=== PATIENT | male | born 1960 | race Caucasian/White ===

== ENCOUNTER → 2019-10-06 | Outpatient (CLI) | payer OTHER | END | disposition home or self-care (01) | LOC: LABWHC1 12:45 | PROVIDERS: ATTEND Surgery Plastic and Reconstructive Surgery | DX: Z01.810 Encounter for preprocedural cardiovascular examination (principal) | CPT/HCPCS: 36415; 93005 ==

== ENCOUNTER 2019-11-06 07:05 | Day surgery (SDC) | payer OTHER ==
[2019-11-04 15:25] VITALS: BMI 29.1
[2019-11-06 10:53] VITALS: TEMP 97
[2019-11-06 12:51] VITALS: BP 131/73; PULSE 99; RESP 16
== END 2019-11-06 13:55 | disposition home or self-care (01) ==
LOC: OR 07:05
PROVIDERS: ATTEND Surgery Plastic and Reconstructive Surgery
DX: K40.90 Unilateral inguinal hernia, without obstruction or gangrene, not specified as recurrent (principal); K66.0 Peritoneal adhesions (postprocedural) (postinfection); K74.69 Other cirrhosis of liver; K21.9 Gastro-esophageal reflux disease without esophagitis; H40.9 Unspecified glaucoma; Z85.46 Personal history of malignant neoplasm of prostate; Z90.79 Acquired absence of other genital organ(s); Z79.899 Other long term (current) drug therapy; Z87.891 Personal history of nicotine dependence; Z92.3 Personal history of irradiation; Z98.41 Cataract extraction status, right eye; Z98.42 Cataract extraction status, left eye; Z80.42 Family history of malignant neoplasm of prostate
CPT/HCPCS: 64488; 85025; 88302; 49650; C1781; J2250; J1644; J1100 ×2; J0690; J2405; J3010; J1885; J2795; J2704

== ENCOUNTER → 2019-11-27 | Outpatient (CLI) | payer OTHER | END | disposition home or self-care (01) | LOC: LABWHC1 08:21 | PROVIDERS: ATTEND Surgery | DX: C61 Malignant neoplasm of prostate (principal) | CPT/HCPCS: 36415; 84153; 84403 ==

== ENCOUNTER → 2020-05-25 | Outpatient (CLI) | payer OTHER ==
--- NOTE | 2020-05-25 09:06 | XR ---
EXAM TYPE: LUMBAR SPINE X RAY SERIES COMPARISON: NONE HISTORY: Pain TECHNIQUE: 3 views are submitted. FINDINGS: Alignment is anatomic. The pedicles are intact. The transverse processes are intact. Diffuse osteop enia with multilevel hypertrophic and degenerative change. There is a grade 1 anterolisthesis L5 on S 1. Multilevel facet arthropathy. IMPRESSION: 1. Multilevel facet arthropathy with severe degenerative disc disease L5-S1. Suspect a spondylolysis with grade 1 anterolisthesis. Recommend follow-up MRI.
[2020-05-25 09:16] LABS: Basophils % (A) 1 %; Eosinophils # (A) 0.1 k/uL (0-0.7); Eosinophils % (A) 3 %; HCT 43.7 % (39.0-53.0); HGB 13.6 gm/dL (13.0-17.5); Lymphocytes # (A) 1.1 k/uL (1.0-4.8); Lymphocytes % (A) 21 %; MCV 90.3 fL (80.0-100.0); Mean Platelet Volume 7.8; Monocytes # (A) 0.3 k/uL (0-1.0); Monocytes % (A) 6 %; Neutrophils # (A) 3.4 k/uL (1.3-7.7); Neutrophils % (A) 68 %; Platelet Count 208 k/uL (150-450); RBC 4.84 m/uL (4.30-5.90); RDW 13.7 % (11.5-15.5)
[2020-05-25 16:43] LABS: ALT 27 U/L (10-49); AST 22 U/L (14-35); African American GFR (CKD) 111.7 (60.0-200.0); Albumin/Globulin Ratio 2.76 (1.60-3.17); Alkaline Phosphatase 93 U/L (41-126); Calcium 9.3 mg/dL (8.7-10.3); Carbon Dioxide 28.6 mmol/L (21.6-31.8); Chloride 105 mmol/L (96-109); Chol/HDL Ratio 3.48; Cholesterol 195 mg/dL (0-200); Globulin 1.7 g/dL (1.6-3.3); Glucose 98 mg/dL (70-110); LDL Cholesterol,Calculated 127.4 mg/dL (0.0-131.0); Non-African American GFR(CKD) 96.4 (60.0-200.0); Potassium 5.3 mmol/L (3.5-5.5); Sodium 143 mmol/L (135-145); Total Bilirubin 0.6 mg/dL (0.2-1.2); Total Protein 6.4 g/dL (6.2-8.2)
[2020-05-25 17:08] LABS: Prostate Specific Antigen <0.1 ng/mL (0.0-4.5)
== END | disposition home or self-care (01) ==
LOC: LABWHC1 08:13
PROVIDERS: ATTEND Surgery
DX: M51.17 Intervertebral disc disorders with radiculopathy, lumbosacral region (principal); M47.27 Other spondylosis with radiculopathy, lumbosacral region; Z00.00 Encounter for general adult medical examination without abnormal findings; C61 Malignant neoplasm of prostate
CPT/HCPCS: 36415; 72100; 80053; 80061; 84153; 84439; 84443; 85025

== ENCOUNTER → 2020-09-22 | Outpatient (CLI) | payer OTHER ==
--- NOTE | 2020-09-22 18:53 | MR ---
EXAMINATION TYPE: MR lumbar spine wo con DATE OF EXAM: 09/22/2020 COMPARISON: Radiograph 05/25/2020 HISTORY: Lower 60-year-old male Back Pain, Goes into Left Buttock and down back of Left Leg. About 1. 5 years TECHNIQUE: Multiplanar, multisequence images of the lumbar spine were acquired. FINDINGS: There is a transitional lumbosacral segment with a partially lumbarized sacral vertebral body. Bilateral L5 pars defects with grade 2, nearly grade 3 anterolisthesis at L5-S1 with associated advan pramod degenerative disc disease with degenerated, desiccated, and narrowed disc with vacuum phenomenon. Mild degenerative disc disease at additional levels in the lumbar spine and facet arthropathy lower l umbar spine. Conus medullaris is normal. No suspicious bone marrow replacement. At T12-L1, mild disc bulge without canal or foraminal stenosis. At L1-L2, mild diffuse disc bulge impressing on the ventral thecal sac but not causing any significan t spinal canal stenosis. Mild narrowing of the right the neuroforamen. At L2-L3, no spinal canal or foraminal stenosis. At L3-L4, mild facet arthropathy. No significant canal or foraminal stenosis. At L4-L5, ligamentum flavum thickening with facet arthropathy and minimal bulging disc. No significan t canal or foraminal stenosis. At L5-S1, grade 2, nearly grade 3 anterolisthesis with hypertrophic facet arthropathy. There is slitl gabriel narrowing of the bilateral neuroforamen with pain of the bilateral exiting L5 nerve roots. There seems to be some mass effect on to the traversing left S1 nerve root at this level, sagittal image 7 and. No spinal canal stenosis. Ectatic upper abdominal aorta 2.9 cm. IMPRESSION: 1. Transitional sacral segment with a lumbarized S1 vertebral body. There are bilateral L5 pars defec ts with grade 2, nearly grade 3 anterolisthesis of L5-S1 with associated advanced degenerative disc d isease. There is resultant slitlike narrowing of the bilateral neuroforamen at this level likely with impingement of the exiting L5 nerve roots. There also seems to be some mass effect onto the traversi ng left S1 nerve root at this level. 2. Mild degenerative disc disease at additional levels. No large focal disc herniation or spinal milton l or other significant neuroforaminal stenosis.
== END | disposition home or self-care (01) ==
LOC: RADMRIMAIN 12:35
PROVIDERS: ATTEND Family Medicine
DX: M48.061 Spinal stenosis, lumbar region without neurogenic claudication (principal); M51.36 Other intervertebral disc degeneration, lumbar region; M51.37 Other intervertebral disc degeneration, lumbosacral region; M43.17 Spondylolisthesis, lumbosacral region
CPT/HCPCS: 72148

== ENCOUNTER → 2021-01-31 | Outpatient (CLI) | payer OTHER ==
--- NOTE | 2021-01-31 09:58 | XR ---
EXAMINATION TYPE: XR chest 2V DATE OF EXAM: 01/31/2021 COMPARISON: None INDICATION: Presurgical evaluation TECHNIQUE: Frontal and lateral views of the chest are obtained. FINDINGS: The heart size is normal. The pulmonary vasculature is normal. The lungs are clear. IMPRESSION: 1. No acute pulmonary process.
== END | disposition home or self-care (01) ==
LOC: RADXRMAIN 08:19
PROVIDERS: ATTEND Neurological Surgery
DX: Z01.818 Encounter for other preprocedural examination (principal)
CPT/HCPCS: 71046

== ENCOUNTER → 2021-03-02 | Outpatient (CLI) | payer OTHER ==
--- NOTE | 2021-03-02 12:03 | ECHOF ---
Referral Reason:R94.31 abnormal EKG, R06.02 shortness of breath MEASUREMENTS -------- HEIGHT: 182.9 cm WEIGHT: 95.3 kg BP: RVIDd: 3.1 cm (< 3.3) IVSd: 1.0 cm (0.6 - 1.1) LVIDd: 5.0 cm (3.9 - 5.3) LVPWd: 1.4 cm (0.6 - 1.1) IVSs: 1.4 cm LVIDs: 3.5 cm LVPWs: 1.3 cm LAESV Index (A-L): 37.70 ml/m Ao Diam: 3.7 cm (2.0 - 3.7) AV Cusp: 1.3 cm (1.5 - 2.6) LA Diam: 3.1 cm (2.7 - 3.8) MV E Joel: 0.45 m/s MV DecT: 284 ms MV A Joel: 0.60 m/s MV E/A Ratio: 0.75 RAP: 5.00 mmHg RVSP: 16.30 mmHg FINDINGS -------- Sinus rhythm. This was a technically good study. LV size, wall thickness and systolic function are normal, with an EF greater than 55%. The left hal tricular size is normal. The right ventricle is normal in size. LA is moderately dilated 34-39 ml/m2 The right atrial size is normal. The aortic valve is trileaflet, and appears structurally normal. No aortic stenosis or regurgitation. Mild mitral regurgitation is present. Mild tricuspid regurgitation present. Right ventricular systolic pressure is normal at < 35 mmHg. There is no pulmonic regurgitation present. There is no pericardial effusion. CONCLUSIONS -------- 1. LV size, wall thickness and systolic function are normal, with an EF greater than 55%. 2. The left ventricular size is normal. 3. The right ventricle is normal in size. 4. LA is moderately dilated 34-39 ml/m2 5. The right atrial size is normal. 6. The aortic valve is trileaflet, and appears structurally normal. No aortic stenosis or regurgitati on. 7. Mild mitral regurgitation is present. 8. Mild tricuspid regurgitation present. 9. There is no pericardial effusion. MANAGER [employer]: Teresa Jain RDCS
--- NOTE | 2021-03-02 13:02 | EST ---
EXERCISE STRESS STRESS ECHO REPORT: Baseline EKG revealed normal sinus rhythm with isolated PVC. No acute changes. Patient walked for 8 minutes, 9 seconds. Achieved a maximal heart rate of 142 beats per minute, which is more than 85% of predicted maximal. Developed fatigue and shortness of breath but did not have any angina or arrhythmia. EKG did not reveal any ST-segment changes to indicate ischemia. The isolated PVC seen at rest disappeared with exercise. By EKG criteria, this is a negative stress test with fair exercise capacity. Baseline echo images revealed normal wall motion wall thickening of all segments. At peak exercise, there was good augmentation of left and wall motion wall thickening of all segments suggesting that there is no evidence of stress-induced ischemia on this study. PLAN: 1. By EKG criteria, this is a negative stress test with fair exercise capacity. 2. Normal stress echocardiogram without evidence of ischemia. MMHAIML / JAMESONN: [id number] /
== END | disposition home or self-care (01) ==
LOC: RADECHMAIN 08:20
PROVIDERS: ATTEND Internal Medicine
DX: I08.1 Rheumatic disorders of both mitral and tricuspid valves (principal)
CPT/HCPCS: 93306; C8930; 93351

== ENCOUNTER → 2021-03-29 | Outpatient (CLI) | payer OTHER ==
[2021-03-29 23:03] LABS: Prostate Specific Antigen <0.1 ng/mL (0.0-4.5)
== END | disposition home or self-care (01) ==
LOC: LABWHC1 08:45
PROVIDERS: ATTEND Radiology Radiation Oncology
DX: C61 Malignant neoplasm of prostate (principal)
CPT/HCPCS: 36415; 84153; 84403

== ENCOUNTER → 2021-03-29 | Outpatient (CLI) | payer OTHER ==
--- NOTE | 2021-03-29 08:46 | XR ---
EXAMINATION TYPE: XR chest 2V DATE OF EXAM: 03/29/2021 COMPARISON: 01/31/2021 INDICATION: Spondylolisthesis lumbar spine, presurgical evaluation TECHNIQUE: Frontal and lateral views of the chest are obtained. FINDINGS: The heart size is normal. The pulmonary vasculature is normal. The lungs are clear. IMPRESSION: 1. No acute pulmonary process.
== END | disposition home or self-care (01) ==
LOC: RADXRMAIN 08:17
PROVIDERS: ATTEND Neurological Surgery
DX: Z01.818 Encounter for other preprocedural examination (principal)
CPT/HCPCS: 71046

== ENCOUNTER → 2021-10-02 | Outpatient (CLI) | payer OTHER ==
[2021-10-02 14:58] LABS: Prostate Specific Antigen <0.01 ng/mL (0.00-4.50)
== END | disposition home or self-care (01) ==
LOC: LABWHC1 08:10
PROVIDERS: ATTEND Radiology Radiation Oncology
DX: C61 Malignant neoplasm of prostate (principal)
CPT/HCPCS: 36415; 84153; 84403

== ENCOUNTER → 2022-06-20 | Outpatient (CLI) | payer OTHER ==
[2022-06-20 16:00] LABS: Basophils # (A) 0.03 X 10*3/uL (0.00-0.10); Basophils % (A) 0.6 %; Eosinophils # (A) 0.11 X 10*3/uL (0.04-0.35); Eosinophils % (A) 2.4 %; HCT 44.1 % (39.6-50.0); HGB 14.4 g/dL (13.0-17.0); Immature Grans, Automated 0.2 %; Lymphocytes # (A) 1.02 X 10*3/uL (0.90-5.00); Lymphocytes % (A) 21.8 %; MCH 29.8 pg (27.0-32.0); MCHC 32.7 g/dL (32.0-37.0); MCV 91.3 fL (80.0-97.0); Monocytes # (A) 0.46 X 10*3/uL (0.20-1.00); Monocytes % (A) 9.9 %; NRBC Per 100 WBC 0 /100 WBCS (0.0-0.0); Neutrophils # (A) 3.04 X 10*3/uL (1.80-7.70); Neutrophils % (A) 65.1 %; Platelet Count 217 X 10*3/uL (140-440); RBC 4.83 X 10*6/uL (4.40-5.60); RDW 13.4 % (11.5-14.5); WBC 4.67 X 10*3/uL (4.50-10.00)
[2022-06-20 17:10] LABS: Chol/HDL Ratio 3.71 Ratio
== END | disposition home or self-care (01) ==
LOC: LABWHC1 08:57
PROVIDERS: ATTEND Family Medicine
DX: Z00.00 Encounter for general adult medical examination without abnormal findings (principal)
CPT/HCPCS: 36415; 80061; 84439; 84443; 85025

== ENCOUNTER 2022-12-03 11:53 | Emergency (ER) | payer OTHER ==
[2022-12-03 12:40] VITALS: BP 145/69; PULSE 76; RESP 18; TEMP 97.7
[2022-12-03] MEDS ORDERED: LIDOCAINE 1% INJ 10MG/ML (30 ML VIAL-PF) SQ ONE (12:51)
[2022-12-03] MEDS ORDERED: DIPH,PERTUS(ACELL)TETVAC-LF 0.5 ML VIAL IM ONE (12:51)
--- NOTE | 2022-12-03 13:37 | ED ---
Wound/Laceration HPI - General Chief Complaint: Wound/Laceration Stated Complaint: cut L finger Time Seen by Provider: 12/03/22 12:44 Source: patient, RN notes reviewed Mode of arrival: ambulatory Limitations: no limitations - History of Present Illness Initial Comments: This is a 62-year-old male who presents to the emergency department for a laceration to the left index finger. He cut this on part of his lawnmower this morning. States that this was a dirty wound. Pain is controlled. Unsure when his last tetanus vaccine was. Denies any fevers, chills, sore throat, cough, dyspnea, chest pain, palpitations, abdominal pain, nausea, vomiting, diarrhea, back pain, or headaches. Location: other (left index finger) Place: home Patient Tetanus UTD: No Context: accidental - Related Data Home Medications Medication Instructions Recorded Confirmed Multivitamin [Men's Multi-Vitamin] 1 tab PO DAILY 03/17/15 11/06/19 Latanoprost/Pf [Latanoprost 0.005% 1 drop BOTH EYES HS 11/04/19 11/06/19 Eye Drop] Previous Rx's Medication Instructions Recorded Acetaminophen Tab [Tylenol Tab] 1,000 mg PO Q6HR PRN #30 tablet 11/06/19 Ibuprofen [Motrin] 600 mg PO Q8HR PRN #30 tab 11/06/19 Tamsulosin [Flomax] 0.4 mg PO DAILY #7 cap 11/06/19 Cephalexin [Keflex] 500 mg PO Q8HR 3 Days #9 cap 12/03/22 Allergies Allergy/AdvReac Type Severity Reaction Status Date / Time No Known Allergies Allergy Verified 11/06/19 07:20 Review of Systems ROS Statement: Those systems with pertinent positive or pertinent negative responses have been documented in the HPI. ROS Other: All systems not noted in ROS Statement are negative. Past Medical History Past Medical History: Cancer, Eye Disorder, GERD/Reflux, Prostate Disorder Additional Past Medical History / Comment(s): prostate cancer, glaucoma, radiation finished 03/2019 for return of prostate cancer History of Any Multi-Drug Resistant Organisms: None Reported Past Surgical History: Hernia Repair, Prostate Surgery Additional Past Surgical History / Comment(s): prostatectomy with lymph node removal , left inguinal hernia, azam cataracts, Past Anesthesia/Blood Transfusion Reactions: No Reported Reaction Past Psychological History: No Psychological Hx Reported Smoking Status: Former smoker Past Alcohol Use History: None Reported Past Drug Use History: Marijuana - Past Family History Father Family Medical History: Cancer Additional Family Medical History / Comment(s): prostate cancer General Exam Limitations: no limitations General appearance: alert, in no apparent distress Head exam: Present: atraumatic, normocephalic, normal inspection Respiratory exam: Present: normal lung sounds bilaterally. Absent: respiratory distress, wheezes, rales, rhonchi, stridor Cardiovascular Exam: Present: regular rate, normal rhythm, normal heart sounds. Absent: systolic murmur, diastolic murmur, rubs, gallop, clicks Neurological exam: Present: alert, oriented X3, CN II-XII intact Psychiatric exam: Present: normal affect, normal mood Skin exam: Present: other (5 centimeter laceration to the dorsal aspect of the left index finger.) Course Vital Signs 12/03/22 12/03/22 12:38 13:44 Temperature 97.7 F Pulse Rate 76 Respiratory 18 18 Rate Blood Pressure 145/69 O2 Sat by Pulse 98 Oximetry Procedures - Laceration Laceration #1 Consent Obtained: verbal consent Indication: laceration Site: other (left index finger) Description: linear Depth: simple, single layer Anesthetic Used: lidocaine 1% Anesthesia Technique: local infiltration Amount (mls): 3 Pre-repair: wound explored, irrigated extensively Type of Sutures: nylon Size of Sutures: 5-0 Number of Sutures: 6 Medical Decision Making - Medical Decision Making This is a 62-year-old male who presents to the emergency department for a laceration. Was pt. sent in by a medical professional or institution? @ -No Did you speak to anyone other than the patient for history? @ -No Did you review nursing and triage notes? @ -Yes, and I agree, it is accurate with regards to the patient's symptoms. Were old charts reviewed? @ -No Differential Diagnosis? @ -Not applicable What testing was considered but not performed? (CT, X-rays, U/S, labs)? Why? @ -None What meds were considered but not given? Why? @ -None Did you discuss the management of the patient with other professionals? @ -No Did you reconcile home meds? @ -No Was smoking cessation discussed for >3mins.? @ -No Was critical care preformed (if so, how long)? @ -No Were there social determinants of health that impacted care today? How? (Homelessness, low income, unemployed, alcoholism, drug addiction, trans portation, low edu. Level, literacy, decrease access to med. care, fci, rehab)? @ -No Was there de-escalation of care discussed even if they declined? (Discuss DNR or withdrawal of care, Hospice)? @ -No What co-morbidities impacted this encounter? (DM, HTN, Smoking, COPD, CAD, Cancer, CVA, Hep., AIDS, mental health diagnosis, sleep apnea, morbid obesity)? @ -None Was patient admitted / discharged? @ -Discharged. The wound was thoroughly irrigated. Tetanus status was updated. Laceration was repaired with sutures. He is instructed to return in 5-7 days for suture removal and to alternate with ibuprofen and Tylenol as needed for pain relief. Given that this was a fairly dirty wound, patient treated prophylactically with a 3 day course of Keflex. This was prescribed with dosing instructions reviewed. Undiagnosed new problem with uncertain prognosis? @ -None Drug Therapy requiring intensive monitoring for toxicity (Heparin, Nitro, Insulin, Cardizem)? @ -None Were any procedures done? @ -Yes, laceration repair with sutures. Diagnosis/symptom? @ -Laceration Acute, or Chronic, or Acute on Chronic? @ -Acute Uncomplicated (without systemic symptoms) or Complicated (systemic symptoms)? @ -Uncomplicated Side effects of treatment? @ -None Exacerbation, Progression, or Severe Exacerbation] @ -Not applicable Poses a threat to life or bodily function? @ -No Return precautions reviewed in depth, the patient is instructed to return to the emergency department with any new, worsening, or concerning symptoms. Patient verbalized understanding. This case was discussed in detail with the attending ED physician, Dr. Li. Presentation, findings, and treatment plan discussed in detail as well. Disposition Clinical Impression: Laceration Disposition: HOME SELF-CARE Instructions (If sedation given, give patient instructions): Care For Your Stitches (ED) Additional Instructions: Return to the emergency department with any new, worsening, or concerning symptoms, and in 5-7 days for removal of the stitches. Take the antibiotic as prescribed for 3 days. Alternate with ibuprofen and Tylenol as needed for pain relief. Prescriptions: Cephalexin [Keflex] 500 mg PO Q8HR 3 Days #9 cap Is patient prescribed a controlled substance at d/c from ED?: No Referrals: Rocky Argueta MD [Primary Care Provider] - 1-2 days
== END 2022-12-03 13:45 | disposition home or self-care (01) ==
LOC: EC 11:53
DX: S61.211A Laceration without foreign body of left index finger without damage to nail, initial encounter (principal); Z87.891 Personal history of nicotine dependence; F12.90 Cannabis use, unspecified, uncomplicated; Z23 Encounter for immunization; W28.XXXA Contact with powered lawn mower, initial encounter
CPT/HCPCS: 90715; 99282; 90471; 12002; J2001

== ENCOUNTER 2022-12-12 08:36 | Day surgery (SDC) | payer OTHER ==
[~2022-12-12 08:36] MED LIST: LACTATED RINGERS 1,000 ML IV SCH; LIDOCAINE 1% (10MG/ML) FOR IV START INTRADERMA PRN
--- NOTE | 2022-12-12 09:02 | P.GSHP ---
History of Present Illness H&P Date: 12/12/22 CHIEF COMPLAINT: Colon screen HISTORY OF PRESENT ILLNESS: The patient is a 62-year-old male who presents for colon screen. Lower endoscopy was offered for further evaluation and management. PAST MEDICAL HISTORY: Please see list. PAST SURGICAL HISTORY: Please see list. MEDICATIONS: Please see list. ALLERGIES: Please see list. SOCIAL HISTORY: No illicit drug use FAMILY HISTORY: No reports of Crohn disease or ulcerative colitis. REVIEW OF ORGAN SYSTEMS: CONSTITUTIONAL: No reports of fevers or chills. PHYSICAL EXAM: VITAL SIGNS: Stable GENERAL: Well-developed pleasant in no acute distress. HEENT: No scleral icterus. Extraocular movements grossly intact. Moist buccal mucosa. NECK: Supple without lymphadenopathy. CHEST: Unlabored respirations. Equal bilateral excursions. CARDIOVASCULAR: Regular rate and rhythm. Distal 2+ pulses. ABDOMEN: Soft, nontender, nondistended. MUSCULOSKELETAL: No clubbing, cyanosis, or edema. ASSESSMENT: 1. Colon screen. PLAN: 1. Recommend proceeding with a lower endoscopy Past Medical History Past Medical History: Cancer, Eye Disorder, GERD/Reflux, Prostate Disorder Additional Past Medical History / Comment(s): prostate cancer, glaucoma, radiation finished 03/2019 for return of prostate cancer, recent CT. removing pre cancerous lesions on arms. History of Any Multi-Drug Resistant Organisms: None Reported Past Surgical History: Back Surgery, Hernia Repair, Prostate Surgery Additional Past Surgical History / Comment(s): prostatectomy, penal implant. , left inguinal hernia, azam cataracts, hardware in back. Past Anesthesia/Blood Transfusion Reactions: No Reported Reaction Smoking Status: Former smoker - Past Family History Father Family Medical History: Cancer Additional Family Medical History / Comment(s): prostate cancer Medications and Allergies Home Medications Medication Instructions Recorded Confirmed Type Multivitamin [Men's Multi-Vitamin] 1 tab PO DAILY 03/17/15 12/07/22 History Latanoprost/Pf [Latanoprost 0.005% 1 drop BOTH EYES HS 11/04/19 12/07/22 History Eye Drop] Dextroamphetamine/Amphetamine 20 mg PO BID 12/07/22 12/07/22 History [Dextroamp-Amphetamin 20 mg Tab] Omeprazole 20 mg PO DAILY 12/07/22 12/07/22 History Allergies Allergy/AdvReac Type Severity Reaction Status Date / Time No Known Allergies Allergy Verified 12/07/22 14:12
[2022-12-12 09:16] VITALS: RESP 16; TEMP 97.8
[2022-12-12] MEDS ORDERED: PROPOFOL 10 MG/ML 20 ML VIAL IV ONE (09:40)
[2022-12-12 10:19] VITALS: BP 120/77; PULSE 69
--- NOTE | 2022-12-12 11:02 | P.PCN ---
Date of Procedure: 12/12/22 Description of Procedure: PREOPERATIVE DIAGNOSIS: Colonoscopy screening. POSTOPERATIVE DIAGNOSIS: Colonoscopy screening. Sigmoid diverticulosis OPERATION: Colonoscopy to the cecum, ileocecal valve and appendiceal orifice. SURGEON: Kendal Grullon MD. ANESTHESIA: MAC. INDICATIONS: The patient is a 62-year-old female who presents for colonoscopy screening. Last colonoscopy 10 years ago. Benefits and risks were described and informed consent was obtained. DESCRIPTION OF PROCEDURE: The patient had undergone Sutab prep. The patient had been brought into the operating room and laid in the left lateral decubitus position. After adequate intravenous sedation, the rectum was examined with 2% lidocaine jelly. No external hemorrhoids were encountered. The rectal tone was within normal limits. No lesions were palpated in the rectal vault. An Olympus colonoscope was advanced until the cecum, ileocecal valve and appendiceal orifice were clearly viewed. The prep was excellent. Scattered diverticulosis was encountered. No colonic polyps were found. No evidence of focal colitis was found. Retroflexion of the scope demonstrated grade 1 internal hemorrhoids without active bleeding or inflammation. The colon was desufflated. The patient had tolerated the procedure well. Withdrawal time was over 6 minutes. FINDINGS: Aronchick preparation quality scale 1 (1-5) Internal hemorrhoids, grade 1 No external prolapsed hemorrhoids. No arteriovenous malformations. No adenomatous polyps. No focal colitis. Sigmoid diverticulosis RECOMMENDATIONS: Lower endoscopy 10 years, 2032 Plan - Discharge Summary Discharge Rx Participant: No New Discharge Prescriptions: Continue Multivitamin [Men's Multi-Vitamin] 1 tab PO DAILY Latanoprost/Pf [Latanoprost 0.005% Eye Drop] 1 drop BOTH EYES HS Omeprazole 20 mg PO DAILY Dextroamphetamine/Amphetamine [Dextroamp-Amphetamin 20 mg Tab] 20 mg PO BID Discharge Medication List Multivitamin [Men's Multi-Vitamin] 1 tab PO DAILY 03/17/15 [History] Latanoprost/Pf [Latanoprost 0.005% Eye Drop] 1 drop BOTH EYES HS 11/04/19 [History] Dextroamphetamine/Amphetamine [Dextroamp-Amphetamin 20 mg Tab] 20 mg PO BID 12/07/22 [History] Omeprazole 20 mg PO DAILY 12/07/22 [History] Follow up Appointment(s)/Referral(s): Kendal Grullon MD [STAFF PHYSICIAN] - As Needed Patient Instructions/Handouts: *Surgery [facility] - (Anesthesia) Endoscopy Discharge Instructions, Diverticulosis (GEN), Diverticulosis Diet (GEN), Colonoscopy (DC) Activity/Diet/Wound Care/Special Instructions: Repeat colonoscopy 10 years, 2032 Discharge Disposition: HOME SELF-CARE
== END 2022-12-12 10:42 | disposition home or self-care (01) ==
LOC: ORWHC2ENDO 08:36
PROVIDERS: ATTEND Surgery Plastic and Reconstructive Surgery
DX: Z12.11 Encounter for screening for malignant neoplasm of colon (principal); K57.30 Diverticulosis of large intestine without perforation or abscess without bleeding; K21.9 Gastro-esophageal reflux disease without esophagitis; Z85.46 Personal history of malignant neoplasm of prostate; Z90.79 Acquired absence of other genital organ(s); Z87.891 Personal history of nicotine dependence; Z80.42 Family history of malignant neoplasm of prostate; Z79.899 Other long term (current) drug therapy
CPT/HCPCS: 45378; J2704

== ENCOUNTER → 2024-01-22 | Outpatient (CLI) | payer OTHER ==
--- NOTE | 2024-01-24 17:03 | XR ---
EXAMINATION TYPE: XR chest 2V DATE OF EXAM: 01/22/2024 4:51 PM CLINICAL INDICATION:Male, 63 years old with history of HEMOPTYSIS; [facility] COMPARISON: 03/29/2021. TECHNIQUE: XR chest 2V Frontal and lateral views of the chest. FINDINGS: Lungs/Pleura: There is flattening of the diaphragm with increased lucency of the lungs. No evidence o f pneumothorax, pleural effusion or focal consolidation. Pulmonary vascularity: Unremarkable. Heart/mediastinum: Cardiomediastinal silhouette is unremarkable. Musculoskeletal: No acute osseous pathology. IMPRESSION: 1. No acute cardiopulmonary disease process. 2. COPD changes.
== END | disposition home or self-care (01) ==
LOC: RADXRMAIN 16:06
PROVIDERS: ATTEND Family Medicine
DX: J44.9 Chronic obstructive pulmonary disease, unspecified (principal); R04.2 Hemoptysis
CPT/HCPCS: 71046

== ENCOUNTER → 2024-01-22 | Outpatient (CLI) | payer OTHER ==
[2024-01-22 18:33] LABS: Basophils # (A) 0.04 X 10*3/uL (0.00-0.10); Basophils % (A) 0.5 %; Eosinophils # (A) 0.21 X 10*3/uL (0.04-0.35); Eosinophils % (A) 2.7 %; HCT 49.6 % (39.6-50.0); HGB 15.6 g/dL (13.0-17.0); Lymphocytes # (A) 1.51 X 10*3/uL (0.90-5.00); Lymphocytes % (A) 19.5 %; MCH 28.3 pg (27.0-32.0); MCHC 31.5 g/dL (32.0-37.0); MCV 89.9 FL (80.0-97.0); Mean Platelet Volume 10.6 FL (9.5-12.2); Monocytes # (A) 0.59 X 10*3/uL (0.20-1.00); Monocytes % (A) 7.6 %; NRBC Per 100 WBC 0 X 10*3/uL (0.00-0.01); Neutrophils # (A) 5.37 X 10*3/uL (1.80-7.70); Neutrophils % (A) 69.3 %; Platelet Count 264 X 10*3/uL (140-440); RBC 5.52 X 10*6/uL (4.40-5.60); RDW 13.9 % (11.5-14.5); WBC 7.75 X 10*3/uL (4.50-10.00)
[2024-01-22 21:53] LABS: ALT 23 U/L (10-49); AST 23 U/L (14-35); Albumin 4.9 g/dL (3.8-4.9); Albumin/Globulin Ratio 1.63 Ratio (1.60-3.17); Alkaline Phosphatase 110 U/L (41-126); Blood Urea Nitrogen 26.9 mg/dL (9.0-27.0); Calcium 10.2 mg/dL (8.7-10.3); Carbon Dioxide 26.2 mmol/L (21.6-31.8); Chloride 102 mmol/L (96-109); Glucose 125 mg/dL (70-110); Potassium 4.8 mmol/L (3.5-5.5); Sodium 142 mmol/L (135-145); Total Bilirubin 0.3 mg/dL (0.3-1.2); Total Protein 7.9 g/dL (6.2-8.2)
== END | disposition home or self-care (01) ==
LOC: LABWHC1 15:26
PROVIDERS: ATTEND Family Medicine
DX: R04.2 Hemoptysis (principal)
CPT/HCPCS: 36415; 80053; 82728; 85025; 86480

== ENCOUNTER 2024-05-12 15:12 | Inpatient (IN) | payer MEDICARE, OTHER ==
--- NOTE | 2024-05-12 15:57 | ED ---
General Adult HPI - General Chief complaint: Chest Pain Stated complaint: Chest Pain Time Seen by Provider: 05/12/24 15:31 Source: patient, RN notes reviewed Mode of arrival: ambulatory Limitations: no limitations - History of Present Illness Initial comments: Patient is a 64-year-old male present to the emergency department with concerns with chest discomfort. Onset of symptoms was several months ago however worse over the past few days. Discomfort feels like an ache. There is some associated dyspnea. Symptoms are exertional. No nausea. No diaphoresis. Discomfort is currently 04/04 - Related Data Home Medications Medication Instructions Recorded Confirmed Multivitamin [Men's Multi-Vitamin] 1 tab PO DAILY 03/17/15 05/12/24 Latanoprost/Pf [Latanoprost 0.005% 1 drop BOTH EYES HS 11/04/19 05/12/24 Eye Drop] Dextroamphetamine/Amphetamine 20 mg PO BID 12/07/22 05/12/24 [Dextroamphetamine/Amphetamine 20 mg Tab] Omeprazole 20 mg PO DAILY 12/07/22 05/12/24 Albuterol Sulfate [Albuterol 1 - 2 puff INHALATION RT-Q6H PRN 05/12/24 05/12/24 Sulfate Hfa] Fluticasone/Umeclidin/Vilanter 1 puff INHALATION RT-DAILY 05/12/24 05/12/24 [Trelegy Ellipta 100-62.5-25] Hydrocodone/Acetaminophen 5-300mg 1 tab PO BID 05/12/24 05/12/24 Allergies Allergy/AdvReac Type Severity Reaction Status Date / Time No Known Allergies Allergy Verified 05/12/24 16:12 Review of Systems ROS Statement: Those systems with pertinent positive or pertinent negative responses have been documented in the HPI. ROS Other: All systems not noted in ROS Statement are negative. Constitutional: Denies: fever Eyes: Denies: eye pain ENT: Denies: ear pain Respiratory: Reports: as per HPI Cardiovascular: Reports: as per HPI, chest pain Endocrine: Denies: fatigue Gastrointestinal: Denies: abdominal pain Musculoskeletal: Denies: back pain Past Medical History Past Medical History: Cancer, Eye Disorder, GERD/Reflux, Prostate Disorder Additional Past Medical History / Comment(s): prostate cancer, glaucoma, radiation finished 03/2019 for return of prostate cancer History of Any Multi-Drug Resistant Organisms: None Reported Past Surgical History: Hernia Repair, Prostate Surgery Additional Past Surgical History / Comment(s): prostatectomy with lymph node removal , left inguinal hernia, azam cataracts, Past Anesthesia/Blood Transfusion Reactions: No Reported Reaction Past Psychological History: No Psychological Hx Reported Smoking Status: Former smoker Past Alcohol Use History: None Reported Past Drug Use History: None Reported - Past Family History Father Family Medical History: Cancer Additional Family Medical History / Comment(s): prostate cancer General Exam Limitations: no limitations General appearance: alert, in no apparent distress Head exam: Present: normocephalic Eye exam: Present: normal appearance Neck exam: Present: normal inspection Respiratory exam: Present: normal lung sounds bilaterally Cardiovascular Exam: Present: tachycardia, normal heart sounds Expanded Peripheral pulses: 2+: Radial (R), Radial (L), Posterior Tibialis (R), Posterior Tibialis (L) GI/Abdominal exam: Present: soft. Absent: distended, tenderness Extremities exam: Present: normal inspection. Absent: pedal edema, calf tenderness Neurological exam: Present: alert Psychiatric exam: Present: normal affect, normal mood Skin exam: Present: normal color Course Vital Signs 05/12/24 05/12/24 05/12/24 15:17 15:29 17:30 Temperature 97.5 F L Pulse Rate 116 H 106 H Pulse Rate [ 114 H Dye Beck Reel Operator ] Respiratory 18 18 Rate Blood Pressure 129/83 111/84 O2 Sat by Pulse 99 Oximetry 05/12/24 19:22 Temperature Pulse Rate 107 H Pulse Rate [ Dye Beck Reel Operator ] Respiratory 18 Rate Blood Pressure 114/86 O2 Sat by Pulse 93 L Oximetry EKG Findings - EKG Results: EKG: interpreted by ERMD, sinus rhythm, normal axis, normal QRS, normal ST/T EKG shows: tachycardia Medical Decision Making - Medical Decision Making Was pt. sent in by a medical professional or institution (, PA, RAILROAD WHEELS AND AXLES INSPECTOR, urgent care, hospital, or skilled nursing...) When possible be specific @ -No Did you speak to anyone other than the patient for history (EMS, parent, family, police, friend...)? What history was obtained from this source @ -No Did you review nursing and triage notes (agree or disagree)? Why? @ -I reviewed and agree with nursing and triage notes Were old charts reviewed (outside hosp., previous admission, EMS record, old EKG, old radiological studies, urgent care reports/EKG's, skilled nursing records)? Report findings @ -No old charts were reviewed Differential Diagnosis (chest pain, altered mental status, abdominal pain women, abdominal pain men, vaginal bleeding, weakness, fever, dyspnea, syncope, headache, dizziness, GI bleed, back pain, seizure, CVA, palpatations, mental health, musculoskeletal)? @ -Differential Chest Pain: Stable Angina, Unstable Angina, STEMI, NSTEMI Aortic Dissection, Pneumothorax, Musculoskeletal, Esophageal Spasm GERD, Cholecystitis, Pancreatitis, Zoster, this is not meant to be an all-inclusive list. EKG interpreted by me (3pts min.). @ -As above X-rays interpreted by me (1pt min.). @ -Chest x-ray shows large left opacity CT interpreted by me (1pt min.). @ -None done U/S interpreted by me (1pt. min.). @ -None done What testing was considered but not performed or refused? (CT, X-rays, U/S, labs)? Why? @ -CT scan of the chest will be ordered What meds were considered but not given or refused? Why? @ -None Did you discuss the management of the patient with other professionals (professionals i.e. , PA, RAILROAD WHEELS AND AXLES INSPECTOR, lab, RT, psych nurse, executive secretary social welfare, cerner analyst, teacher, special forces warrant officer, vocational case manager)? Give summary @ -[facility] [place] practitioner Lora Wylie who will admit covering Dr. Argueta Was smoking cessation discussed for >3mins.? @ -No Was critical care preformed (if so, how long)? @ -No Were there social determinants of health that impacted care today? How? (Homelessness, low income, unemployed, alcoholism, drug addiction, transportation, low edu. Level, literacy, decrease access to med. care, longterm, rehab)? @ -No Was there de-escalation of care discussed even if they declined (Discuss DNR or withdrawal of care, Hospice)? DNR status @ -No What co-morbidities impacted this encounter? (DM, HTN, Smoking, COPD, CAD, Cancer, CVA, ARF, Chemo, Hep., AIDS, mental health diagnosis, sleep apnea, morbid obesity)? @ -None Was patient admitted / discharged? Hospital course, mention meds given and route, prescriptions, significant lab abnormalities, going to OR and other pertinent info. @ -Patient presents with chest discomfort and dyspnea. Chest x-ray concerning for opacity. Patient will be admitted with CT scan ordered. Consults will be placed. Admission orders written. Undiagnosed new problem with uncertain prognosis? @ -No Drug Therapy requiring intensive monitoring for toxicity (Heparin, Nitro, Insulin, Cardizem)? @ -No Were any procedures done? @ -No Diagnosis/symptom? @ -Chest pain, dyspnea Acute, or Chronic, or Acute on Chronic? @ -Acute, acute Uncomplicated (without systemic symptoms) or Complicated (systemic symptoms)? @ -Default Side effects of treatment? @ -No Exacerbation, Progression, or Severe Exacerbation? @ -No Poses a threat to life or bodily function? How? (Chest pain, [place], [place], pneumonia, PE, COPD, DKA, ARF, appy, cholecystitis, CVA, Diverticulitis, Homicidal, Suicidal, threat to staff... and all critical care pts) @ -Cardiac and pulmonary function - Lab Data Result diagrams: 05/12/24 16:26 05/12/24 16:26 Lab Results 05/12/24 05/12/24 05/12/24 Range/Units 16:26 16:26 16:26 WBC 8.9 (3.8-10.6) k/uL RBC 5.39 (4.30-5.90) m/uL Hgb 15.4 (13.0-17.5) gm/dL Hct 48.6 (39.0-53.0) % MCV 90.1 (80.0-100.0) fL MCH 28.5 (25.0-35.0) pg MCHC 31.6 (31.0-37.0) g/dL RDW 13.7 (11.5-15.5) % Plt Count 265 (150-450) k/uL MPV 7.6 Neutrophils % 78 % Lymphocytes % 13 % Monocytes % 5 % Eosinophils % 2 % Basophils % 0 % Neutrophils # 7.0 (1.3-7.7) k/uL Lymphocytes # 1.2 (1.0-4.8) k/uL Monocytes # 0.4 (0-1.0) k/uL Eosinophils # 0.2 (0-0.7) k/uL Basophils # 0.0 (0-0.2) k/uL PT 10.3 (10.0-12.5) sec INR 0.9 (<1.2) APTT 22.8 (22.0-30.0) sec D-Dimer 0.33 (<0.60) mg/L FEU Sodium 141 (137-145) mmol/L Potassium 4.4 (3.5-5.1) mmol/L Chloride 101 (98-107) mmol/L Carbon Dioxide 31 H (22-30) mmol/L Anion Gap 9 mmol/L BUN 19 (9-20) mg/dL Creatinine 0.88 (0.66-1.25) mg/dL Est GFR (CKD-EPI)AfAm >90 (>60 ml/min/1.73 sqM) Est GFR (CKD-EPI)NonAf >90 (>60 ml/min/1.73 sqM) Glucose 108 H (74-99) mg/dL Calcium 9.4 (8.4-10.2) mg/dL Magnesium 1.9 (1.6-2.3) mg/dL Total Bilirubin 0.7 (0.2-1.3) mg/dL AST 27 (17-59) U/L ALT 21 (4-49) U/L Alkaline Phosphatase 79 (38-126) U/L Troponin I (0.000-0.034) ng/mL NT-Pro-B Natriuret Pep 62 pg/mL Total Protein 7.2 (6.3-8.2) g/dL Albumin 4.3 (3.5-5.0) g/dL 05/12/24 Range/Units 16:26 WBC (3.8-10.6) k/uL RBC (4.30-5.90) m/uL Hgb (13.0-17.5) gm/dL Hct (39.0-53.0) % MCV (80.0-100.0) fL MCH (25.0-35.0) pg MCHC (31.0-37.0) g/dL RDW (11.5-15.5) % Plt Count (150-450) k/uL MPV Neutrophils % % Lymphocytes % % Monocytes % % Eosinophils % % Basophils % % Neutrophils # (1.3-7.7) k/uL Lymphocytes # (1.0-4.8) k/uL Monocytes # (0-1.0) k/uL Eosinophils # (0-0.7) k/uL Basophils # (0-0.2) k/uL PT (10.0-12.5) sec INR (<1.2) APTT (22.0-30.0) sec D-Dimer (<0.60) mg/L FEU Sodium (137-145) mmol/L Potassium (3.5-5.1) mmol/L Chloride (98-107) mmol/L Carbon Dioxide (22-30) mmol/L Anion Gap mmol/L BUN (9-20) mg/dL Creatinine (0.66-1.25) mg/dL Est GFR (CKD-EPI)AfAm (>60 ml/min/1.73 sqM) Est GFR (CKD-EPI)NonAf (>60 ml/min/1.73 sqM) Glucose (74-99) mg/dL Calcium (8.4-10.2) mg/dL Magnesium (1.6-2.3) mg/dL Total Bilirubin (0.2-1.3) mg/dL AST (17-59) U/L ALT (4-49) U/L Alkaline Phosphatase (38-126) U/L Troponin I <0.012 (0.000-0.034) ng/mL NT-Pro-B Natriuret Pep pg/mL Total Protein (6.3-8.2) g/dL Albumin (3.5-5.0) g/dL Disposition Clinical Impression: Chest pain, Dyspnea Disposition: ADMITTED IP TO THIS HOSP Is patient prescribed a controlled substance at d/c from ED?: No Time of Disposition: 19:53
[2024-05-12] MEDS: ASPIRIN 81 MG PO STA (16:35)
[2024-05-12] MEDS: NITROGLYCERIN SL TABS 0.4 MG TAB SUBLINGUAL STA ×3 (16:36→16:52)
[2024-05-12 16:44] LABS: Basophils % (A) 0 %; Eosinophils # (A) 0.2 k/uL (0-0.7); Eosinophils % (A) 2 %; HCT 48.6 % (39.0-53.0); HGB 15.4 gm/dL (13.0-17.5); Lymphocytes # (A) 1.2 k/uL (1.0-4.8); Lymphocytes % (A) 13 %; MCH 28.5 pg (25.0-35.0); MCHC 31.6 g/dL (31.0-37.0); MCV 90.1 fL (80.0-100.0); Mean Platelet Volume 7.6; Monocytes # (A) 0.4 k/uL (0-1.0); Monocytes % (A) 5 %; Neutrophils % (A) 78 %; Platelet Count 265 k/uL (150-450); RBC 5.39 m/uL (4.30-5.90); RDW 13.7 % (11.5-15.5); WBC 8.9 k/uL (3.8-10.6)
[2024-05-12 16:58] LABS: INR 0.9 (<1.2)
[2024-05-12 16:59] LABS: Partial Thromboplastin Time 22.8 sec (22.0-30.0); Prothrombin Time 10.3 sec (10.0-12.5)
[2024-05-12 17:00] LABS: ALT 21 U/L (4-49); African American GFR (CKD) >90 (>60 ml/min/1.73 sqM); Albumin 4.3 g/dL (3.5-5.0); Anion Gap 9 mmol/L; Blood Urea Nitrogen 19 mg/dL (9-20); Calcium 9.4 mg/dL (8.4-10.2); Carbon Dioxide 31 mmol/L (22-30); Chloride 101 mmol/L (98-107); Glucose 108 mg/dL (74-99); Non-African American GFR(CKD) >90 (>60 ml/min/1.73 sqM); Sodium 141 mmol/L (137-145); Total Bilirubin 0.7 mg/dL (0.2-1.3); Total Protein 7.2 g/dL (6.3-8.2)
[2024-05-12 17:04] LABS: AST 27 U/L (17-59); Alkaline Phosphatase 79 U/L (38-126); Magnesium 1.9 mg/dL (1.6-2.3); Potassium 4.4 mmol/L (3.5-5.1)
--- NOTE | 2024-05-12 17:04 | XR ---
EXAMINATION TYPE: XR chest 2V DATE OF EXAM: 05/12/2024 COMPARISON: 01/22/2024 INDICATION: Chest pain TECHNIQUE: Frontal and lateral views of the chest are obtained. FINDINGS: There is shift of the mediastinum to the left. There is a large opacity through the left lung. Correl ate for atelectasis. Underlying mass should be considered. Pneumonia should be considered. Findings a re unchanged from comparison. Correlate for any surgical history. The heart size is normal. The pulmonary vasculature is normal. IMPRESSION: 1. Mediastinal shift to the left suggesting underlying atelectasis. Underlying mass is not excluded. Consider pneumonia. Additional workup is recommended. [facility], , 05/12/2024 5:02 PM
[2024-05-12 17:07] LABS: NT-Pro-B-Type Natriuretic Pept 62 pg/mL
[2024-05-12] MEDS ORDERED: NALOXONE 0.4 MG/ML 1 ML VIAL IV PRN (19:53)
[2024-05-12] MEDS ORDERED: RX INFO: IV CONTRAST WAS GIVEN 1 EACH MISC MISCELLANE PRN (19:55)
[2024-05-12] MEDS ORDERED: ALBUTEROL NEBULIZED 2.5 MG/3 ML INHALATION PRN (19:56)
[2024-05-12] MEDS: HYDROcodone/APAP 5-325MG 1 EACH TAB PO SCH (21:30)
--- NOTE | 2024-05-12 22:11 | CT ---
EXAMINATION TYPE: CT chest w con DATE OF EXAM: 05/12/2024 COMPARISON: Plain films 05/12/2024 HISTORY: Pt states lung and chest pain for the past few days. Pt denies any nausea or dizziness. PT d oes admit to SOB. Pt also states recent diagnosis of COPD. CT DLP: 332.2 mGycm, Automated exposure control for dose reduction was used. CONTRAST: Performed injected with 100 mL of Isovue 300. TECHNIQUE: Axial images were obtained at 5 mm thick sections. Reconstructed images are reviewed on [employer] computer in the coronal plane. FINDINGS: Portion of the thyroid visualized is atrophic. There appears to be compressive atelectasis within the right lung. Small amount of fluid may be prese nt as well. Some underlying soft tissue density may extend at the hilum. The left lower lobe bronchus may be obstructed. Example image series 201 image 29. Postobstructive atelectasis is present which m ay account for the mediastinal shift. No enlarged mediastinal or hilar adenopathy is evident. The ascending aorta diameter at the level o f the main pulmonary artery is 3.7 cm. The main pulmonary artery diameter at the bifurcation is 3.[address] sections are obtained through the upper abdomen. There is extensive hypodensities scattere d throughout the liver. Some of these are very hypodense and may be cysts. Underlying metastasis shou ld be considered. There is a punctate nonobstructing renal stone superior pole right kidney at the edge of the field of view.r there is a nonobstructing renal stone superior pole left kidney measuring 0.5 cm IMPRESSION: 1. Right main bronchus filling defect with post bronchial obstruction and atelectasis. Consider bronc hoscopy. 2. Extensive hypodensities within the liver. The larger do appear to be cysts. However, the smaller l esions are less definitive than metastasis is not excluded. Consider additional workup. 3. Nonobstructing superior pole renal calcifications. [facility], , 05/12/2024 10:09 PM
[2024-05-12] MEDS: LATANOPROST 0.005% OPHTH DROPS 2.5 ML BTL BOTH EYES SCH (22:22)
[2024-05-12] MEDS: NITROGLYCERIN OINT 1 INCH/GM PACKET TOPICAL SCH (23:17)
[2024-05-13] MEDS: HYDROmorphone 0.5 MG/0.5 ML SYRINGE IVP PRN (01:40)
--- NOTE | 2024-05-13 04:26 | P.CNPUL ---
History of Present Illness Consult date: 05/13/24 Requesting physician: Lavell Lynne Reason for consult: dyspnea Chief complaint: Chest pain History of present illness: Patient is a 64-year-old male with past medical history significant for prostate cancer status post radiation and prostatectomy, GERD, and former tobacco dependence. Patient's primary care provider is Dr. Argueta, but recently started following with a ADDRESSING MACHINE OPERATOR in the office. Reportedly been seen multiple times on an outpatient. He has had ongoing issues since the beginning of summer in December with progressively worsening shortness of breath, persistent cough. Recently diagnosed with COPD. He has a [id number] history, but quit smoking 6 years ago. Denies weight loss. Denies family history of lung cancer. He carries a personal history of prostate cancer status post prostatectomy in subsequent radiation. He presents emergency department yesterday afternoon with a chief c omplaint of chest pain, mostly localized to the left upper chest. Nonradiating. Worse with coughing and deep breathing. EKG: Sinus tachycardia, heart rate 113 bpm, nondiagnostic for acute ischemia. Serial troponins less than 0.[address] demonstrating volume loss of the left lung and mediastinal shift, absorptive atelectasis, and cutoff sign of the left mainstem bronchus. Extensive hypodensities also seen within the liver. Larger lesions may be cyst, however, smaller lesions and metastasis was not excluded. Patient denies any infectious symptoms or sick contacts. Afebrile. Reports intermittent episodes of hemoptysis at the start the summer. CBC unremarkable, no leukocytosis. D- dimer was 0.33. BMP also unremarkable. LFTs not elevated. Patient is currently sitting up in the chair, he is on room air, no acute distress. SpO2 is 91%. Heart rate is elevated and tachycardic at 115 bpm. Vital signs are stable. Review of Systems Constitutional: Denies chills, Denies fever, Denies night sweats, Denies poor appetite, Denies weight gain, Denies weight loss Ears, nose, mouth and throat: Denies headache, Denies nasal congestion, Denies nasal discharge, Denies post-nasal drip, Denies sinus pressure, Denies sore throat Cardiovascular: Reports dyspnea on exertion, Denies leg edema, Denies orthopnea, Denies palpitations, Denies paroxysmal nocturnal dyspnea, Denies syncope Respiratory: Reports as per HPI Gastrointestinal: Denies abdominal pain, Denies change in bowel habits, Denies constipation, Denies diarrhea, Denies nausea, Denies vomiting Genitourinary: Reports kidney stones, Reports urinary frequency, Denies dysuria, Denies flank pain, Denies hematuria Musculoskeletal: Denies arm numbness/tingling, Denies leg numbness/tingling, Denies limitation of motion, Denies muscle weakness Integumentary: Denies rash Neurological: Denies balance difficulties, Denies confusion, Denies seizures, Denies syncope, Denies visual changes Psychiatric: Denies anxiety, Denies depression Past Medical History Past Medical History: Cancer, Eye Disorder, GERD/Reflux, Prostate Disorder Additional Past Medical History / Comment(s): prostate cancer, glaucoma, radiation finished 03/2019 for return of prostate cancer History of Any Multi-Drug Resistant Organisms: None Reported Past Surgical History: Hernia Repair, Prostate Surgery Additional Past Surgical History / Comment(s): prostatectomy with lymph node removal , left inguinal hernia, azam cataracts, Past Anesthesia/Blood Transfusion Reactions: No Reported Reaction Past Psychological History: No Psychological Hx Reported Smoking Status: Former smoker Past Alcohol Use History: None Reported Past Drug Use History: None Reported - Past Family History Father Family Medical History: Cancer Additional Family Medical History / Comment(s): prostate cancer Medications and Allergies Home Medications Medication Instructions Recorded Confirmed Type Multivitamin [Men's Multi-Vitamin] 1 tab PO DAILY 03/17/15 05/12/24 History Latanoprost/Pf [Latanoprost 0.005% 1 drop BOTH EYES HS 11/04/19 05/12/24 History Eye Drop] Dextroamphetamine/Amphetamine 20 mg PO BID 12/07/22 05/12/24 History [Dextroamphetamine/Amphetamine 20 mg Tab] Omeprazole 20 mg PO DAILY 12/07/22 05/12/24 History Albuterol Sulfate [Albuterol 1 - 2 puff INHALATION RT-Q6H PRN 05/12/24 05/12/24 History Sulfate Hfa] Fluticasone/Umeclidin/Vilanter 1 puff INHALATION RT-DAILY 05/12/24 05/12/24 History [Trelegy Ellipta 100-62.5-25] Hydrocodone/Acetaminophen 5-300mg 1 tab PO BID 05/12/24 05/12/24 History Allergies Allergy/AdvReac Type Severity Reaction Status Date / Time No Known Allergies Allergy Verified 05/12/24 16:12 Physical Exam Vitals: Vital Signs Temp Pulse Pulse Resp BP Pulse Ox 05/13/24 02:20 96 17 114/85 91 L 05/13/24 01:38 117 H 18 115/79 90 L 05/13/24 01:13 115 H 20 101/75 90 L 05/12/24 23:15 104 H 18 113/78 91 L 05/12/24 22:22 98 F 104 H 16 129/76 92 L 05/12/24 21:00 117/81 05/12/24 19:22 107 H 18 114/86 93 L 05/12/24 17:30 106 H 18 111/84 99 05/12/24 15:29 114 H 05/12/24 15:17 97.5 F L 116 H 18 129/83 Intake and Output 05/12/24 05/12/24 05/13/24 14:59 22:59 06:59 Other: Weight 82.1 kg GENERAL EXAM: Alert, 64-year-old white male, sitting in the chair at the bedside, comfortable in no apparent distress. HEAD: Normocephalic and atraumatic EYES: Normal reaction of pupils, equal size. NOSE: Clear with pink turbinates. THROAT: No erythema or exudates. NECK: No masses, no JVD. CHEST: No chest wall deformity. LUNGS: Equal air entry diminished left-sided lung sounds. No crackles, rhonchi, wheezes. On room air. No conversational dyspnea or accessory muscle use.. CVS: S1 and S2 normal with no audible murmur, regular rhythm. No extra heart sounds ABDOMEN: No hepatosplenomegaly, active bowel sounds, no guarding or rigidity. SPINE: No scoliosis or deformity SKIN: No rashes CENTRAL NERVOUS SYSTEM: No focal deficits, tone is normal in all 4 extremities. EXTREMITIES: There is no peripheral edema, clubbing, or cyanosis. Peripheral pulses are intact. Results - Laboratory Findings CBC and BMP: 05/12/24 16:26 05/12/24 16:26 PT/INR, D-dimer PT 10.3 sec (10.0-12.5) 05/12/24 16: INR 0.9 (<1.2) 05/12/24 16: D-Dimer 0.33 mg/L FEU (<0.60) 05/12/24 16:26 Abnormal lab findings: Abnormal Labs 05/12/24 16:26 Carbon Dioxide 31 H Glucose 108 H - Diagnostic Findings Chest x-ray: image reviewed CT scan - chest: image reviewed Assessment and Plan Assessment: Possible lung mass, with obstruction of the left mainstem bronchus, absorptive atelectasis, volume loss and mediastinal shift. Chest pain, secondary to above COPD, recently diagnosed by his primary care provider, currently inactive Liver lesions History of kidney stones History of prostate cancer status post prostatectomy and radiation Former tobacco dependence, [id number] history Plan: Patient medications, labs, imaging reviewed There is cuff sign of the left mainstem bronchus, volume loss of the left lung, and absorptive atelectasis. There is a concern for malignancy and this will need to be excluded, patient will need to undergo bronchoscopy with airway examination and possible biopsy Case will be reviewed with my supervising physician, Dr. Carr. Further recommendations are to follow I have personally seen and examined the patient, performed the documentation and the assessment and plan as written. Number of minutes spent on the visit:20 Time with Patient: Greater than 30
[2024-05-13] MEDS: IPRATROPIUM 0.5 MG/2.5 ML NEBU INHALATION SCH (08:01)
[2024-05-13] MEDS: SYMBICORT 80-4.5 MCG INHALER INHALATION SCH (08:01)
[2024-05-13] MEDS: [UNRECOGNIZED DRUG - OTHER] PO SCH (08:19)
[2024-05-13] MEDS: AMPHETAMINE PO SCH (08:19)
[2024-05-13] MEDS: DEXTROAMPHETAMINE PO SCH (08:19)
[2024-05-13] MEDS ORDERED: IPRATROPIUM-ALBUTEROL 3 ML NEB INHALATION PRN (08:24)
[2024-05-13] MEDS: PANTOPRAZOLE 40 MG TABLET PO SCH (08:32)
[2024-05-13] MEDS: ASPIRIN 325 MG TAB PO SCH (08:32)
[2024-05-13] MEDS: predniSONE 20 MG TAB PO SCH (08:33)
[2024-05-13] MEDS: MULTIVITAMINS, THERA 1 EACH TAB PO SCH (08:51)
--- NOTE | 2024-05-13 09:53 | P.CRDCN ---
History of Present Illness History of present illness: This is Dr. Griggs dictating a consult on this patient The patient was interviewed and examined IMPRESSION / ASSESSMENT: Shortness of breath, progressive with mild chest ache: Exertional symptoms Complained of chest discomfort 8 out of 10 when he first arrived in the ER Twelve-lead EKG shows sinus tachycardia 113 beats a minute normal ST segments D-dimer normal serial troponins normal BNP normal Past history of smoking, stopped smoking since 6 years Elevated heart rates greater than 100 Frequent PVCs on telemetry PLAN: The CT scan suggests likely neoplastic process, obstructive in nature with volume loss and possible liver metastasis. Patient is awaiting bronchoscopy and biopsy From a cardiovascular standpoint I will stop the full aspirin, switch to p.o. baby aspirin Stop Nitropaste 2D echo and Doppler study to assess LV function and pericardium and to look for any metastatic spread since he has been experiencing symptoms since December HPI Since summer the patient has been complaining of exertional shortness of breath and intermittent hemoptysis He was admitted to the hospital and the ER note states he was having 8 out of 10 chest discomfort and was treated with Nitropaste and aspirin CT scan showed obstructive lesion in the bronchus with volume loss and possible liver metastasis Patient has a longstanding history of smoking but he stopped smoking 6 years back He denies any chest discomfort at this time but 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 Past Medical History Past Medical History: Cancer, Eye Disorder, GERD/Reflux, Prostate Disorder Additional Past Medical History / Comment(s): prostate cancer, glaucoma, radiation finished 03/2019 for return of prostate cancer History of Any Multi-Drug Resistant Organisms: None Reported Past Surgical History: Hernia Repair, Prostate Surgery Additional Past Surgical History / Comment(s): prostatectomy with lymph node removal , left inguinal hernia, azam cataracts, Past Anesthesia/Blood Transfusion Reactions: No Reported Reaction Past Psychological History: No Psychological Hx Reported Smoking Status: Former smoker Past Alcohol Use History: None Reported Past Drug Use History: None Reported - Past Family History Father Family Medical History: Cancer Additional Family Medical History / Comment(s): prostate cancer Medications and Allergies Home Medications Medication Instructions Recorded Confirmed Type Multivitamin [Men's Multi-Vitamin] 1 tab PO DAILY 03/17/15 05/12/24 History Latanoprost/Pf [Latanoprost 0.005% 1 drop BOTH EYES HS 11/04/19 05/12/24 History Eye Drop] Dextroamphetamine/Amphetamine 20 mg PO BID 12/07/22 05/12/24 History [Dextroamphetamine/Amphetamine 20 mg Tab] Omeprazole 20 mg PO DAILY 12/07/22 05/12/24 History Albuterol Sulfate [Albuterol 1 - 2 puff INHALATION RT-Q6H PRN 05/12/24 05/12/24 History Sulfate Hfa] Fluticasone/Umeclidin/Vilanter 1 puff INHALATION RT-DAILY 05/12/24 05/12/24 History [Trelegy Ellipta 100-62.5-25] Hydrocodone/Acetaminophen 5-300mg 1 tab PO BID 05/12/24 05/12/24 History Allergies Allergy/AdvReac Type Severity Reaction Status Date / Time No Known Allergies Allergy Verified 05/12/24 16:12 Physical Exam Vitals: Vital Signs Temp Pulse Pulse Resp BP Pulse Ox 05/13/24 09:00 111 H 17 93 L 05/13/24 08:45 106 H 20 110/51 93 L 05/13/24 08:30 109 H 22 107/70 92 L 05/13/24 08:13 101 H 05/13/24 08:01 103 H 99 05/13/24 08:00 100 16 111/92 91 L 05/13/24 07:40 88 L 05/13/24 07:30 105 H 17 95/79 85 L 05/13/24 06:04 97.8 F 92 17 111/80 93 L 05/13/24 04:08 97.9 F 92 18 107/86 95 05/13/24 02:20 96 17 114/85 91 L 05/13/24 01:38 117 H 18 115/79 90 L 05/13/24 01:13 115 H 20 101/75 90 L 05/12/24 23:15 104 H 18 113/78 91 L 05/12/24 22:22 98 F 104 H 16 129/76 92 L 05/12/24 21:00 117/81 05/12/24 19:22 107 H 18 114/86 93 L 05/12/24 17:30 106 H 18 111/84 99 05/12/24 15:29 114 H 05/12/24 15:17 97.5 F L 116 H 18 129/83 Intake and Output 05/12/24 05/13/24 05/13/24 22:59 06:59 14:59 Other: Weight 82.1 kg Results 05/12/24 16:26 05/12/24 16:26 Cardiac Enzymes 05/12/24 05/12/24 05/12/24 Range/Units 16:26 16:26 21:16 AST 27 (17-59) U/L Troponin I <0.012 <0.012 (0.000-0.034) ng/mL 05/12/24 Range/Units 23:57 AST (17-59) U/L Troponin I <0.012 (0.000-0.034) ng/mL Coagulation 05/12/24 Range/Units 16:26 PT 10.3 (10.0-12.5) sec APTT 22.8 (22.0-30.0) sec CBC 05/12/24 Range/Units 16:26 WBC 8.9 (3.8-10.6) k/uL RBC 5.39 (4.30-5.90) m/uL Hgb 15.4 (13.0-17.5) gm/dL Hct 48.6 (39.0-53.0) % Plt Count 265 (150-450) k/uL Comprehensive Metabolic Panel 05/12/24 Range/Units 16:26 Sodium 141 (137-145) mmol/L Potassium 4.4 (3.5-5.1) mmol/L Chloride 101 (98-107) mmol/L Carbon Dioxide 31 H (22-30) mmol/L BUN 19 (9-20) mg/dL Creatinine 0.88 (0.66-1.25) mg/dL Glucose 108 H (74-99) mg/dL Calcium 9.4 (8.4-10.2) mg/dL AST 27 (17-59) U/L ALT 21 (4-49) U/L Alkaline Phosphatase 79 (38-126) U/L Total Protein 7.2 (6.3-8.2) g/dL Albumin 4.3 (3.5-5.0) g/dL Current Medications Generic Name Dose Route Start Last Admin Trade Name Freq PRN Reason Stop Dose Admin Hydrocodone Bitart/Acetaminophen 1 each 05/12/24 21:00 05/13/24 07:35 Hydrocodone/Apap 5-325mg 1 Each Tab PO 1 each BID JOSSY Administration Albuterol/Ipratropium 3 ml 05/13/24 12:00 Ipratropium-Albuterol 3 Ml Neb INHALATION RT-QID JOSSY Albuterol/Ipratropium 3 ml 05/13/24 08:24 Ipratropium-Albuterol 3 Ml Neb INHALATION RT-Q1H PRN Shortness Of Breath Or Wheezing Aspirin 81 mg 05/14/24 09:00 Aspirin 81 Mg PO DAILY JOSSY Budesonide/Formoterol Fumarate 2 puff 05/13/24 20:00 Symbicort 160-4.5 Mcg Inhaler INHALATION RT-BID JOSSY Hydromorphone HCl 0.5 mg 05/13/24 01:04 05/13/24 08:51 Hydromorphone 0.5 Mg/0.5 Ml Syringe IVP 0.5 mg Q4HR PRN Administration Pain Latanoprost 1 drops 05/12/24 21:00 05/12/24 22:22 Latanoprost 0.005% Ophth Drops 2.5 Ml Btl BOTH EYES 1 drops HS JOSSY Administration Miscellaneous Information 1 each 05/12/24 19:55 Rx Info: Iv Contrast Was Given 1 Each Misc MISCELLANE 05/14/24 19:55 DAILY PRN Per Protocol Multivitamins 1 each 05/13/24 09:00 05/13/24 08:51 Multivitamins, Thera 1 Each Tab PO 1 each DAILY JOSSY Administration Naloxone HCl 0.2 mg 05/12/24 19:53 Naloxone 0.4 Mg/Ml 1 Ml Vial IV Q2M PRN Opioid Reversal Non-Formulary Medication 20 mg 05/13/24 07:30 05/13/24 08:19 Dextroamphetamine/Amphetamine [Dextroamphetamine/Amphetamine 20 Mg Tab] PO Not Given AC-BID JOSSY Pantoprazole Sodium 40 mg 05/13/24 07:30 05/13/24 08:32 Pantoprazole 40 Mg Tablet PO 40 mg AC-BRKFST JOSSY Administration Prednisone 40 mg 05/13/24 09:00 05/13/24 08:33 Prednisone 20 Mg Tab PO 40 mg DAILY JOSSY Administration Intake and Output 05/12/24 05/13/24 05/13/24 22:59 06:59 14:59 Other: Weight 82.1 kg 05/12/24 16:26 05/12/24 16:26
[2024-05-13] MEDS: IPRATROPIUM-ALBUTEROL 3 ML NEB INHALATION SCH (12:30)
--- NOTE | 2024-05-13 12:59 | P.HPIM ---
History of Present Illness H&P Date: 05/13/24 History of present illness; patient 64-year-old gentleman past medical history significant for COPD, prostate cancer supposed radiation and prostatectomy, GERD who presented to the ER because of complaint of chest pain. Patient stated that he was all right a few days ago when he started noticing that he was getting chest discomfort that was intermittent, patient described it as a feeling of uneasiness in the left side of the chest, denies any radiation, no aggravating or relieving factor associated with chest discomfort. Complaining of shortness of breath. Patient has been complaining of productive cough. Patient was recently diagnosed with COPD. Because of the symptoms, patient presented to the ER Initial lab work done in the ER showed WBC 8.9, hemoglobin 15.4, platelet count 265, D-dimer 0.33, sodium 141, potassium 4.4, BUN 19, creatinine 0.88, glucose 108, bilirubin 0.7 troponin 0.012 EKG done in the ER showed heart rate of 113 , no ST segment elevation or depression seen, no T-wave inversions seen. Chest x-ray done in the ER showed mediastinal shift to the left suggesting und erlying atelectasis, consider pneumonia CT chest PE protocol done showed right main bronchus filling defect with post bronchial obstruction atelectasis ,extensive hypodensities within the liver Patient admitted to internal medicine service REVIEW OF SYSTEMS: CONSTITUTIONAL: No fever, no malaise, no fatigue. HEENT: No recent visual problems or hearing problems. Denied any sore throat. CARDIOVASCULAR: As mentioned above PULMONARY: As mentioned above GASTROINTESTINAL: No diarrhea, no nausea, no vomiting, no abdominal pain. NEUROLOGICAL: No headaches, no weakness, no numbness. HEMATOLOGICAL: Denies any bleeding or petechiae. GENITOURINARY: Denies any burning micturition, frequency, or urgency. MUSCULOSKELETAL/RHEUMATOLOGICAL: Denies any joint pain, swelling, or any muscle pain. ENDOCRINE: Denies any polyuria or polydipsia. The rest of the 14-point review of systems is negative. PHYSICAL EXAMINATION: GENERAL: The patient is alert and oriented x3, not in any acute distress. Well developed, well nourished. HEENT: Pupils are round and equally reacting to light. EOMI. No scleral icterus. No conjunctival pallor. Normocephalic, atraumatic. No pharyngeal erythema. No thyromegaly. CARDIOVASCULAR: S1 and S2 present. No murmurs, rubs, or gallops. PULMONARY: Chest is clear to auscultation, no wheezing or crackles. ABDOMEN: Soft, nontender, nondistended, normoactive bowel sounds. No palpable organomegaly. MUSCULOSKELETAL: No joint swelling or deformity. EXTREMITIES: No cyanosis, clubbing, or pedal edema. NEUROLOGICAL: Gross neurological examination did not reveal any focal deficits. SKIN: No rashes. Assessment and plan Chest pain Possible lung mass with obstruction of left mainstem bronchus with atelectasis and mediastinal shift Shortness of breath COPD History of prostate cancer Monitor vital signs Monitor CBC Monitor CMP Continue telemetry monitoring Ordered breathing treatments Ordered prednisone Ordered 2D echo Pulmonology consulted Cardiology consult Labs and medication were reviewed.. Continue same treatment. Continue with symptomatic treatment. Resume home medication. Monitor labs and vitals. DVT and GI prophylaxis. Further recommendations as per clinical course of the patient Dictation was produced using [employer] dictation software. please excuse any grammatical, word or spelling errors. Past Medical History Past Medical History: Cancer, Eye Disorder, GERD/Reflux, Prostate Disorder Additional Past Medical History / Comment(s): prostate cancer, glaucoma, radiation finished 03/2019 for return of prostate cancer History of Any Multi-Drug Resistant Organisms: None Reported Past Surgical History: Hernia Repair, Prostate Surgery Additional Past Surgical History / Comment(s): prostatectomy with lymph node removal , left inguinal hernia, azam cataracts, Past Anesthesia/Blood Transfusion Reactions: No Reported Reaction Past Psychological History: No Psychological Hx Reported Smoking Status: Former smoker Past Alcohol Use History: None Reported Past Drug Use History: None Reported - Past Family History Father Family Medical History: Cancer Additional Family Medical History / Comment(s): prostate cancer Medications and Allergies Home Medications Medication Instructions Recorded Confirmed Type Multivitamin [Men's Multi-Vitamin] 1 tab PO DAILY 03/17/15 05/12/24 History Latanoprost/Pf [Latanoprost 0.005% 1 drop BOTH EYES HS 11/04/19 05/12/24 History Eye Drop] Dextroamphetamine/Amphetamine 20 mg PO BID 12/07/22 05/12/24 History [Dextroamphetamine/Amphetamine 20 mg Tab] Omeprazole 20 mg PO DAILY 12/07/22 05/12/24 History Albuterol Sulfate [Albuterol 1 - 2 puff INHALATION RT-Q6H PRN 05/12/24 05/12/24 History Sulfate Hfa] Fluticasone/Umeclidin/Vilanter 1 puff INHALATION RT-DAILY 05/12/24 05/12/24 Hist ory [Trelegy Ellipta 100-62.5-25] Hydrocodone/Acetaminophen 5-300mg 1 tab PO BID 05/12/24 05/12/24 History Allergies Allergy/AdvReac Type Severity Reaction Status Date / Time No Known Allergies Allergy Verified 05/12/24 16:12 Physical Exam Vitals: Vital Signs Temp Pulse Pulse Resp BP Pulse Ox 05/13/24 09:00 111 H 17 93 L 05/13/24 08:45 106 H 20 110/51 93 L 05/13/24 08:30 109 H 22 107/70 92 L 05/13/24 08:13 101 H 05/13/24 08:01 103 H 99 05/13/24 08:00 100 16 111/92 91 L 05/13/24 07:40 88 L 05/13/24 07:30 105 H 17 95/79 85 L 05/13/24 06:04 97.8 F 92 17 111/80 93 L 05/13/24 04:08 97.9 F 92 18 107/86 95 05/13/24 02:20 96 17 114/85 91 L 05/13/24 01:38 117 H 18 115/79 90 L 05/13/24 01:13 115 H 20 101/75 90 L 05/12/24 23:15 104 H 18 113/78 91 L 05/12/24 22:22 98 F 104 H 16 129/76 92 L 05/12/24 21:00 117/81 05/12/24 19:22 107 H 18 114/86 93 L 05/12/24 17:30 106 H 18 111/84 99 05/12/24 15:29 114 H 05/12/24 15:17 97.5 F L 116 H 18 129/83 Intake and Output 05/12/24 05/13/24 05/13/24 22:59 06:59 14:59 Other: Weight 82.1 kg Results CBC & Chem 7: 05/12/24 16:26 05/12/24 16:26 Labs: Abnormal Lab Results - Last 24 Hours (Table) 05/12/24 Range/Units 16:26 Carbon Dioxide 31 H (22-30) mmol/L Glucose 108 H (74-99) mg/dL
[2024-05-13] MEDS: SYMBICORT 160-4.5 MCG INHALER INHALATION SCH (20:49)
[2024-05-14] MEDS ORDERED: PROPOFOL 10 MG/ML 20 ML VIAL IV ONE (07:57)
[2024-05-14] MEDS ORDERED: LIDOCAINE 2% (PF) 20 MG/ML 5 ML VIAL ONE (07:57)
[2024-05-14] MEDS: SODIUM CHLORIDE 0.9% 500 ML 500 ML IV ONE ×2 (08:03→08:19)
[2024-05-14] MEDS: LIDOCAINE 2% INJ 20 MG/ML INTRATRACH ONE (08:06)
[2024-05-14] MEDS: ASPIRIN 81 MG PO SCH (08:30)
--- NOTE | 2024-05-14 08:46 | PCN ---
PROCEDURE NOTE PULMONARY/CRITICAL CARE PROCEDURE NOTE: PROCEDURES PERFORMED: Bronchoscopy, airway examination, therapeutic lavage, BAL, left mainstem, brushes left mainstem, and endobronchial biopsies, left mainstem. PREOPERATIVE DIAGNOSIS: Rule out cancer. POSTOPERATIVE DIAGNOSIS: Rule out cancer. OPERATORS: Dr. Carr. ANESTHESIA PROVIDED: Monitored anesthesia care. DESCRIPTION OF PROCEDURE: The patient's procedure took place in room #2. There was informed consent and universal timeout. After the patient was adequately sedated and being fully monitored, the bronchoscope was inserted through the right nostril. It passed through the right nasopharynx into the oropharynx. The hypopharynx was identified and topicalized. The hypopharyngeal structures, including anterior commissure, true cords, false cords, arytenoids, piriform sinuses, right and left, vallecula, all appeared normal. The glottic opening was topicalized. The bronchoscope was pushed through the glottic opening into the trachea. Trachea appeared normal. The right and left mainstem were topicalized. The right upper lobe and its three segments, right middle lobe and its two segments, and the right lower lobe and its five segments all appeared normal. On the left side, there was an obstructing tumor at the entrance to the left mainstem. It was actually beyond the tracheal angeline in the midportion of the left mainstem. The tumor was very erythematous and vascular. We did brushes of the tumor. We also did endobronchial biopsies and washes of the tumor. We got at least six good pieces on endobronchial biopsies. The patient tolerated the procedure well. There was minimal bleeding. We ensured hemostasis. The bronchoscope was withdrawn. There was no immediate complication. The fluid in the tissue samples will be sent for analysis. MMODL / IJN: [id number] /
--- NOTE | 2024-05-14 10:59 | P.PN ---
Subjective Progress Note Date: 05/14/24 Principal diagnosis: Shortness of breath, chest pain. Patient is a 64-year-old male with past medical history significant for prostate cancer status post radiation and prostatectomy, GERD, and former tobacco dependence. Patient's primary care provider is Dr. Argueta, but recently started following with a TESTING SPECIALIST in the office. Reportedly been seen multiple times on an outpatient. He has had ongoing issues since the beginning of summer in December with progressively worsening shortness of breath, persistent cough. Recently diagnosed with COPD. He has a [id number] history, but quit smoking 6 years ago. Denies weight loss. Denies family history of lung cancer. He carries a personal history of prostate cancer status post prostatectomy in subsequent radiation. He presents emergency department yesterday afternoon with a chief complaint of chest pain, mostly localized to the left upper chest. Nonradiating. Worse with coughing and deep breathing. EKG: Sinus tachycardia, h eart rate 113 bpm, nondiagnostic for acute ischemia. Serial troponins less than 0.[address] demonstrating volume loss of the left lung and mediastinal shift, absorptive atelectasis, and cutoff sign of the left mainstem bronchus. Extensive hypodensities also seen within the liver. Larger lesions may be cyst, however, smaller lesions and metastasis was not excluded. Patient denies any i nfectious symptoms or sick contacts. Afebrile. Reports intermittent episodes of hemoptysis at the start the summer. CBC unremarkable, no leukocytosis. D-dimer was 0.33. BMP also unremarkable. LFTs not elevated. Patient is currently sitting up in the chair, he is on room air, no acute distress. SpO2 is 91%. Heart rate is elevated and tachycardic at 115 bpm. Vital signs are stable. Progress note dated May 14, 2024. This is a 64-year-old male who was seen yesterday in consultation. He presented with complaints of shortness of breath and chest pain. His chest x-ray and CAT scan suggested a central obstructing mass, in the left mainstem. Bronchoscopy was performed today. He had an obstructing mass, noted in the proximal left mainstem. We did biopsies, washings, and brushes. Certainly looks like cancer. The patient tolerated the procedure well. No new labs today. Objective - Vital Signs Vital signs: Vital Signs Temp 97.8 F 05/14/24 07:00 Pulse 92 05/14/24 09:27 Resp 16 05/14/24 07:00 BP 124/68 05/14/24 07:00 Pulse Ox 94 L 05/14/24 09:20 FiO2 Intake & Output 05/13/24 05/14/24 05/14/24 18:59 06:59 18:59 Intake Total 118 480 300 Balance 118 480 300 Weight 82.1 kg Intake: IV 300 Oral 118 480 Other: Voiding Method Toilet # Voids 1 2 - Exam No acute distress, oriented 3. Respiratory distress. 2 L saturation is 97%. HEENT examination is grossly unremarkable. Mucous membranes are moist. No oral lesions. Neck supple. Full range of motion. No adenopathy thyromegaly or neck vein distention. Cardiovascular examination reveals regular rhythm rate. S1-S2 normal. No S3 or S4. No discernible murmur noted. Lungs reveal scattered rhonchi. Diminished breath sounds on the left. No wheezes or crackles. Abdomen soft bowel sounds are heard. No masses or tenderness. Extremities are intact. No cyanosis clubbing or edema. Skin is without rash or lesion. Neurologic examination is brief but nonfocal. - Labs CBC & Chem 7: 05/12/24 16:26 05/12/24 16:26 Assessment and Plan Assessment: Obstructing lung mass, left mainstem bronchus, with absorptive atelectasis, volume loss and mediastinal shift. Chest pain, secondary to above. COPD, recently diagnosed. Liver lesions. History of kidney stones. History of prostate cancer status post prostatectomy and radiation. Former tobacco dependence, [id number] history. Plan: Plan dated May 14, 2024. The patient underwent bronchoscopy today. He had an obstructing mass, in his mid left mainstem bronchus. We did washings, biopsies, and brushings. This most certainly is lung cancer. Additional recommendations and suggestions are forthcoming. The patient will need follow-up in our office. He continues on Symbicort, DuoNeb, and prednisone 40 mg. Additional recommendations and suggestions are forthcoming. Once he feels well enough, he can be discharged, with follow-up in our office. Time with Patient: Less than 30
--- NOTE | 2024-05-14 12:19 | P.PN ---
Subjective Progress Note Date: 05/14/24 patient 64-year-old gentleman past medical history significant for COPD, prostate cancer supposed radiation and prostatectomy, GERD who presented to the ER because of complaint of chest pain. Patient stated that he was all right a few days ago when he started noticing that he was getting chest discomfort that was intermittent, patient described it as a feeling of uneasiness in the left side of the chest, denies any radiation, no aggravating or relieving factor associated with chest discomfort. Complaining of shortness of breath. Patient has been complaining of productive cough. Patient was recently diagnosed with COPD. Because of the symptoms, patient presented to the ER Initial lab work done in the ER showed WBC 8.9, hemoglobin 15.4, platelet count 265, D-dimer 0.33, sodium 141, potassium 4.4, BUN 19, creatinine 0.88, glucose 108, bilirubin 0.7 troponin 0.012 EKG done in the ER showed heart rate of 113 , no ST segment elevation or depression seen, no T-wave inversions seen. Chest x-ray done in the ER showed mediastinal shift to the left suggesting underlying atelectasis, consider pneumonia CT chest PE protocol done showed right main bronchus filling defect with post bronchial obstruction atelectasis ,extensive hypodensities within the liver Patient admitted to internal medicine service 05/14. Patient seen and examined. Status post bronchoscopy and lavage showing left mainstream obstructing tumor, brushings and biopsies taken REVIEW OF SYSTEMS: CONSTITUTIONAL: No fever, no malaise,. CARDIOVASCULAR: No chest pain, no palpitations, no syncope. PULMONARY: No shortness of breath, no cough, GASTROINTESTINAL: No diarrhea, no nausea, no vomiting, no abdominal pain. NEUROLOGICAL: No headaches, no weakness, PHYSICAL EXAMINATION: GENERAL: The patient is alert and oriented x3, not in any acute distress. Well developed, well nourished. HEENT: Pupils are round and equally reacting to light. EOMI. No scleral icterus. No conjunctival pallor. Normocephalic, atraumatic. No pharyngeal erythema. No thyromegaly. CARDIOVASCULAR: S1 and S2 present. No murmurs, rubs, or gallops. PULMONARY: Chest is clear to auscultation, no wheezing or crackles. ABDOMEN: Soft, nontender, nondistended, normoactive bowel sounds. No palpable organomegaly. MUSCULOSKELETAL: No joint swelling or deformity. EXTREMITIES: No cyanosis, clubbing, or pedal edema. NEUROLOGICAL: Gross neurological examination did not reveal any focal deficits. SKIN: No rashes. Assessment and plan Chest pain Endobronchial tumor with obstruction of left mainstem bronchus with atelectasis and mediastinal shift Shortness of breath COPD History of prostate cancer Monitor vital signs Monitor CBC Monitor CMP Continue telemetry monitoring Continue breathing treatment Continue prednisone Status post bronchoscopy and lavage showing left mainstream obstructing tumor, brushings and biopsies taken Echo pending Cardiology following Pulmonology following Labs and medication were reviewed.. Continue same treatment. Continue with symptomatic treatment. Resume home medication. Monitor labs and vitals. DVT a nd GI prophylaxis. Further recommendations as per clinical course of the patient Dictation was produced using [employer] dictation software. please excuse any grammatical, word or spelling errors. Objective - Vital Signs Vital signs: Vital Signs Temp 97.8 F 05/14/24 07:00 Pulse 92 05/14/24 09:27 Resp 16 05/14/24 07:00 BP 124/68 05/14/24 07:00 Pulse Ox 94 L 05/14/24 09:20 FiO2 Intake & Output 05/13/24 05/14/24 05/14/24 18:59 06:59 18:59 Intake Total 480 300 Balance 480 300 Weight 82.1 kg Intake: IV 300 Oral 480 Other: Voiding Method Toilet # Voids 1 2 - Labs CBC & Chem 7: 05/12/24 16:26 05/12/24 16:26
--- NOTE | 2024-05-14 14:07 | CA ---
Transthoracic Echo Report Name: Carlos Rodriguez Age: 64 Gender: M : 1960 Exam Date: 05/13/2024 09:50 Exam Location: [facility] Ht (in): 72 Wt (lb): 181 Ordering Physician: Harshad Griggs MD ([id number]) Attending/Referring Phys: Network Coordinator Shanda Simpson, ALETHEA Procedure CPT: Indications: Shortness of breath, tachycardia, PVCs, lung mass Cardiac Hx: Technical Quality: Fair Contrast 1: Total Dose (mL): Contrast 2: Total Dose (mL): MEASUREMENTS (Male / Female) Normal Values 2D ECHO LV Diastolic Diameter PLAX 5.0 cm 4.2 - 5.9 / 3.9 - 5.3 cm LV Systolic Diameter PLAX 3.9 cm IVS Diastolic Thickness 1.2 cm 0.6 - 1.0 / 0.6 - 0.9 cm LVPW Diastolic Thickness 1.2 cm 0.6 - 1.0 / 0.6 - 0.9 cm LV Relative Wall Thickness 0.5 RV Internal Dim ED PLAX 2.2 cm Aortic Root Diameter 3.7 cm LA Systolic Diameter LX 3.4 cm 3.0 - 4.0 / 2.7 - 3.8 cm LV Diastolic Volume MOD BP 70.5 cm??? 67 - 155 / 56 - 104 cm??? LV Systolic Volume MOD BP 47.1 cm??? 22 - 58 / 19 - 49 cm??? LV Ejection Fraction MOD BP 33.2 % >= 55 % LV Cardiac Index MOD BP 1085.6 cm???/min???m??? LV Diastolic Volume MOD 4C 69.0 cm??? LV Systolic Volume MOD 4C 48.3 cm??? LV Ejection Fraction MOD 4C 30.0 % LV Cardiac Index MOD 4C 961.6 cm???/min???m??? LV Diastolic Length 4C 7.2 cm LV Systolic Length 4C 6.7 cm LV Diastolic Volume MOD 2C 69.4 cm??? LV Systolic Volume MOD 2C 45.1 cm??? LV Ejection Fraction MOD 2C 35.0 % LV Cardiac Index MOD 2C 1126.4 cm???/min???m??? LV Diastolic Length 2C 7.7 cm LV Systolic Length 2C 6.3 cm LA Volume 48.3 cm??? 18 - 58 / 22 - 52 cm??? LA Volume Index 23.6 cm???/m??? 16 - 28 cm???/m??? M-MODE Aortic Root Diameter MM 3.7 cm LA Systolic Diameter MM 2.9 cm LA Ao Ratio MM 0.8 AV Cusp Separation MM 2.0 cm DOPPLER MV Area PHT 2.7 cm??? Mitral E Point Velocity 55.2 cm/s Mitral A Point Velocity 80.5 cm/s Mitral E to A Ratio 0.7 MV Deceleration Time 277.8 ms TR Peak Velocity 289.2 cm/s TR Peak Gradient 33.5 mmHg Right Ventricular Systolic Press 47.5 mmHg FINDINGS Left Ventricle Left ventricular ejection fraction is estimated at 40-45%. Mildly increased septal wall thickness. Dyskinetic septum. Reduced global left ventricular systolic function. Left ventricular cavity size normal. Right Ventricle Mild right ventricular dilatation. Moderate pulmonary hypertension. Right Atrium Mild right atrial dilatation. Left Atrium Mild left atrial dilatation. Mitral Valve Myxomatous (redundant) mitral valve. Aufq-se-[id number] mitral regurgitation. No mitral stenosis. Aortic Valve Trileaflet aortic valve. No aortic valve stenosis or regurgitation. Tricuspid Valve Structurally normal tricuspid valve. Mild tricuspid regurgitation. Pulmonic Valve Structurally normal pulmonic valve. No pulmonic stenosis. Trace pulmonic regurgitation. Pericardium No pericardial effusion. Aorta Aorta at upper limits of normal. CONCLUSIONS Diagnosis progressive shortness of breath, abnormal CT scan of the chest Reduced LV systolic function Septal bounce consistent with RV pressure overload Moderate pulmonary hypertension with RV enlargement No pericardial effusion Dilated IVC 2+ MR Previewed by: Dr. Harshad Griggs MD (Electronically Signed) Final Date: 14 May 2024 14:07
[2024-05-14 17:18] LABS: Appearance,BF Bloody (Clear); RBC, Body Fluid 61000 /UL (0-2000)
[2024-05-15 07:15] VITALS: BP 123/83; PULSE 71; RESP 16; TEMP 98
[2024-05-15 09:02] LABS: Basophils # (A) 0.02 X 10*3/uL (0.00-0.10); Basophils % (A) 0.2 %; Eosinophils # (A) 0.04 X 10*3/uL (0.04-0.35); Eosinophils % (A) 0.4 %; Lymphocytes # (A) 1.35 X 10*3/uL (0.90-5.00); Lymphocytes % (A) 12.9 %; MCH 29.3 pg (27.0-32.0); MCHC 32.6 g/dL (32.0-37.0); Mean Platelet Volume 10.9 FL (9.5-12.2); Monocytes # (A) 0.63 X 10*3/uL (0.20-1.00); NRBC Per 100 WBC 0 X 10*3/uL (0.00-0.01); Neutrophils # (A) 8.36 X 10*3/uL (1.80-7.70); Platelet Count 235 X 10*3/uL (140-440); RBC 4.78 X 10*6/uL (4.40-5.60); RDW 13.9 % (11.5-14.5); WBC 10.45 X 10*3/uL (4.50-10.00)
[2024-05-15 09:24] LABS: ALT 17 U/L (10-49); AST 12 U/L (14-35); Albumin/Globulin Ratio 1.74 Ratio (1.60-3.17); Alkaline Phosphatase 88 U/L (41-126); BUN/Creat Ratio 24.67 Ratio (12.00-20.00); Blood Urea Nitrogen 22.2 mg/dL (9.0-27.0); Calcium 9.2 mg/dL (8.7-10.3); Chloride 103 mmol/L (96-109); Globulin 2.3 g/dL (1.6-3.3); Glucose 103 mg/dL (70-110); Potassium 4.5 mmol/L (3.5-5.5); Sodium 140 mmol/L (135-145); Total Bilirubin 0.3 mg/dL (0.3-1.2); Total Protein 6.3 g/dL (6.2-8.2)
--- NOTE | 2024-05-15 10:27 | P.DS ---
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 Patient stated that he was all right a few days ago when he started noticing that he was getting chest discomfort that was intermittent, patient described it as a feeling of uneasiness in the left side of the chest, denies any radiation, no aggravating or relieving factor associated with chest discomfort. Complaining of shortness of breath. Patient has been complaining of productive cough. Patient was recently diagnosed with COPD. Because of the symptoms, patient presented to the ER Initial lab work done in the ER showed WBC 8.9, hemoglobin 15.4, platelet count 265, D-dimer 0.33, sodium 141, potassium 4.4, BUN 19, creatinine 0.88, glucose 108, bilirubin 0.7 troponin 0.012 EKG done in the ER showed heart rate of 113 , no ST segment elevation or depression seen, no T-wave inversions seen. Chest x-ray done in the ER showed mediastinal shift to the left suggesting underlying atelectasis, consider pneumonia CT chest PE protocol done showed right main bronchus filling defect with post bronchial obstruction atelectasis ,extensive hypodensities within the liver Patient admitted to internal medicine service 05/14. Patient seen and examined. Status post bronchoscopy and lavage showing left mainstream obstructing tumor, brushings and biopsies taken. 05/15. Patient seen and examined. Biopsies pending, pulmonology to follow-up outpatient and will update him with biopsy results. Being discharged in stable condition PHYSICAL EXAMINATION: GENERAL: The patient is alert and oriented x3, not in any acute distress. Well developed, well nourished. HEENT: Pupils are round and equally reacting to light. EOMI. No scleral icterus. No conjunctival pallor. Normocephalic, atraumatic. No pharyngeal erythema. No thyromegaly. CARDIOVASCULAR: S1 and S2 present. No murmurs, rubs, or gallops. PULMONARY: Chest is clear to auscultation, no wheezing or crackles. ABDOMEN: Soft, nontender, nondistended, normoactive bowel sounds. No palpable organomegaly. MUSCULOSKELETAL: No joint swelling or deformity. EXTREMITIES: No cyanosis, clubbing, or pedal edema. NEUROLOGICAL: Gross neurological examination did not reveal any focal deficits. SKIN: No rashes. Dictation was produced using [employer] dictation software. please excuse any grammatical, word or spelling errors. Patient Condition at Discharge: Fair Plan - Discharge Summary Discharge Rx Participant: Yes New Discharge Prescriptions: New Aspirin 81 mg PO DAILY #30 tab predniSONE [Deltasone] 40 mg PO DAILY 4 Days #8 tab Continue Multivitamin [Men's Multi-Vitamin] 1 tab PO DAILY Latanoprost/Pf [Latanoprost 0.005% Eye Drop] 1 drop BOTH EYES HS Omeprazole 20 mg PO DAILY Hydrocodone/Acetaminophen 5-300mg 1 tab PO BID Dextroamphetamine/Amphetamine [Dextroamphetamine/Amphetamine 20 mg Tab] 20 mg PO BID Albuterol Sulfate [Albuterol Sulfate Hfa] 1 - 2 puff INHALATION RT-Q6H PRN PRN Reason: Shortness Of Breath Fluticasone/Umeclidin/Vilanter [Trelegy Ellipta 100-62.5-25] 1 puff INHALATION RT-DAILY Discharge Medication List Multivitamin [Men's Multi-Vitamin] 1 tab PO DAILY 03/17/15 [History] Latanoprost/Pf [Latanoprost 0.005% Eye Drop] 1 drop BOTH EYES HS 11/04/19 [History] Dextroamphetamine/Amphetamine [Dextroamphetamine/Amphetamine 20 mg Tab] 20 mg PO BID 12/07/22 [History] Omeprazole 20 mg PO DAILY 12/07/22 [History] Albuterol Sulfate [Albuterol Sulfate Hfa] 1 - 2 puff INHALATION RT-Q6H PRN 05/12/24 [History] Fluticasone/Umeclidin/Vilanter [Trelegy Ellipta 100-62.5-25] 1 puff INHALATION RT-DAILY 05/12/24 [History] Hydrocodone/Acetaminophen 5-300mg 1 tab PO BID 05/12/24 [History] Aspirin 81 mg PO DAILY #30 tab 05/15/24 [Rx] predniSONE [Deltasone] 40 mg PO DAILY 4 Days #8 tab 05/15/24 [Rx] Follow up Appointment(s)/Referral(s): Rocky Argueta MD [Primary Care Provider] - 1-2 days Rashad Carr DO [Doctor of Osteopathic Medicine] - 1 Week Discharge Disposition: HOME SELF-CARE
--- NOTE | 2024-05-15 10:59 | P.PN ---
Subjective Progress Note Date: 05/15/24 Principal diagnosis: Shortness of breath, chest pain. Patient is a 64-year-old male with past medical history significant for prostate cancer status post radiation and prostatectomy, GERD, and former tobacco dependence. Patient's primary care provider is Dr. Argueta, but recently started following with a SYNOPTIC METEOROLOGIST in the office. Reportedly been seen multiple times on an outpatient. He has had ongoing issues since the beginning of summer in December with progressively worsening shortness of breath, persistent cough. Recently diagnosed with COPD. He has a [id number] history, but quit smoking 6 years ago. Denies weight loss. Denies family history of lung cancer. He carries a personal history of prostate cancer status post prostatectomy in subsequent radiation. He presents emergency department yesterday afternoon with a chief complaint of chest pain, mostly localized to the left upper chest. Nonradiating. Worse with coughing and deep breathing. EKG: Sinus tachycardia, h eart rate 113 bpm, nondiagnostic for acute ischemia. Serial troponins less than 0.[address] demonstrating volume loss of the left lung and mediastinal shift, absorptive atelectasis, and cutoff sign of the left mainstem bronchus. Extensive hypodensities also seen within the liver. Larger lesions may be cyst, however, smaller lesions and metastasis was not excluded. Patient denies any i nfectious symptoms or sick contacts. Afebrile. Reports intermittent episodes of hemoptysis at the start the summer. CBC unremarkable, no leukocytosis. D-dimer was 0.33. BMP also unremarkable. LFTs not elevated. Patient is currently sitting up in the chair, he is on room air, no acute distress. SpO2 is 91%. Heart rate is elevated and tachycardic at 115 bpm. Vital signs are stable. Progress note dated May 14, 2024. This is a 64-year-old male who was seen yesterday in consultation. He presented with complaints of shortness of breath and chest pain. His chest x-ray and CAT scan suggested a central obstructing mass, in the left mainstem. Bronchoscopy was performed today. He had an obstructing mass, noted in the proximal left mainstem. We did biopsies, washings, and brushes. Certainly looks like cancer. The patient tolerated the procedure well. No new labs today. Progress note dated May 15, 2024. The patient is seen today in room 631. He underwent bronchoscopy on May 14. He had a large obstructing mass, in the left mainstem bronchus. We did washings, brushings, and biopsies. He tolerated the procedure well. This morning he is on room air. No IV fluids. He is feeling comfortable. I told him that he could be discharged home. He will need to follow-up with me in the office. He will need a PET scan as an outpatient, and complete pulmonary f unction testing. Objective - Vital Signs Vital signs: Vital Signs Temp 98 F 05/15/24 07:00 Pulse 71 05/15/24 07:00 Resp 16 05/15/24 07:00 BP 123/83 05/15/24 07:00 Pulse Ox 97 05/15/24 07:00 FiO2 Intake & Output 05/14/24 05/15/24 05/15/24 18:59 06:59 18:59 Intake Total 1018 Balance 1018 Intake: IV 300 Oral 718 Other: Voiding Method Toilet Toilet # Voids 3 2 - Exam No acute distress, oriented 3. Respiratory distress. Room air saturation is 95%. HEENT examination is grossly unremarkable. Mucous membranes are moist. No oral lesions. Neck supple. Full range of motion. No adenopathy thyromegaly or neck vein distention. Cardiovascular examination reveals regular rhythm rate. S1-S2 normal. No S3 or S4. No discernible murmur noted. Lungs reveal scattered rhonchi. Diminished breath sounds on the left. No wheezes or crackles. Abdomen soft bowel sounds are heard. No masses or tenderness. Extremities are intact. No cyanosis clubbing or edema. Skin is without rash or lesion. Neurologic examination is brief but nonfocal. - Labs CBC & Chem 7: 05/15/24 03:54 05/15/24 03:54 Labs: Abnormal Lab Results - Last 24 Hours (Table) 05/14/24 05/15/24 05/15/24 Range/Units 08:00 03:54 03:54 WBC 10.45 H (4.50-10.00) X 10*3/uL Immature Gran # 0.05 H (0.00-0.04) X 10*3/uL Neutrophils # 8.36 H (1.80-7.70) X 10*3/uL BUN/Creatinine Ratio 24.67 H (12.00-20.00) Ratio AST 12 L (14-35) U/L Fluid Appearance Bloody A (Clear) Microbiology - Last 24 Hours (Table) 05/14/24 08:00 Gram Stain - Preliminary Bronchoalviolar Lavage - Left Assessment and Plan Assessment: Obstructing lung mass, left mainstem bronchus, with absorptive atelectasis, volume loss and mediastinal shift. S/P bronchoscopy, on May 14, revealing an obstructing mass, in his mid left mainstem bronchus, with biopsies, brushings, and washings performed. Chest pain, secondary to above. COPD, recently diagnosed. Liver lesions. History of kidney stones. History of prostate cancer status post prostatectomy and radiation. Former tobacco dependence, [id number] history. Plan: Plan dated May 14, 2024. The patient underwent bronchoscopy today. He had an obstructing mass, in his mid left mainstem bronchus. We did washings, biopsies, and brushings. This most certainly is lung cancer. Additional recommendations and suggestions are forthcoming. The patient will need follow-up in our office. He continues on Symbicort, DuoNeb, and prednisone 40 mg. Additional recommendations and suggestions are forthcoming. Once he feels well enough, he can be discharged, with follow-up in our office. Plan dated May 15, 2024. The patient could be discharged home. He will need to follow-up with me in the office. He can see me late next week or the week after that. He will need an outpatient PET scan to complete pulmonary function testing. I told her biopsies would typically take about a week to 10 days, to come back on the chart. Prog nosis is guarded. The patient is counseled not to ever smoke again. Time with Patient: Less than 30
[2024-05-18 11:03] LABS: Nucleated Cells, Body Fluid 600 /UL
== END 2024-05-15 10:43 | disposition home or self-care (01) | DRG 181 ==
LOC: EC 15:12 → 6NMEDSUR 19:55 → OBSVTOIN 05-14 10:49
PROVIDERS: ADMIT Hospitalist; ATTEND Hospitalist
PROC: 0BB78ZX Excision of Left Main Bronchus, Via Natural or Artificial Opening Endoscopic, Diagnostic (ICD-10-PCS; principal; 2024-05-14 08:00)
PROC: 0BD78ZX Extraction of Left Main Bronchus, Via Natural or Artificial Opening Endoscopic, Diagnostic (ICD-10-PCS; 2024-05-14 08:00)
DX: C34.02 Malignant neoplasm of left main bronchus (principal); J98.11 Atelectasis; J44.9 Chronic obstructive pulmonary disease, unspecified; K76.9 Liver disease, unspecified; I49.3 Ventricular premature depolarization; Z79.899 Other long term (current) drug therapy; Z79.51 Long term (current) use of inhaled steroids; Z79.891 Long term (current) use of opiate analgesic; Z85.46 Personal history of malignant neoplasm of prostate; Z87.891 Personal history of nicotine dependence; Z90.79 Acquired absence of other genital organ(s); Z92.3 Personal history of irradiation
CPT/HCPCS: 31623; 31624; 31625; 36415; 71046; 71260; 80053; 83735; 83880; 84484; 85025; 85379; 85610; 85730; 87070; 87205; 88104; 88108; 88305; 88341; 88342; 89050; 93005; 93306; 94640; 94760; 96374; 96376; 99285

== ENCOUNTER → 2024-06-02 | Outpatient (CLI) | payer MEDICARE, OTHER ==
--- NOTE | 2024-06-02 15:31 | MR ---
EXAMINATION TYPE: MR brain wo/w con DATE OF EXAM: 06/02/2024 COMPARISON: None HISTORY: Lung cancer CONTRAST: Performed utilizing 8 mL intravenous Gadavist gadolinium contrast. TECHNIQUE: Multiplanar, multiecho imaging on a 3.0 Madalyn magnet is performed through the brain. Stud y is performed within 24 hours of arrival to the hospital. The craniovertebral junction is normal. The pituitary is normal. 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 No abnormal hyperintensity is present to suggest an acute i ntracranial infarct or acute ischemic change. Small subcentimeter subcortical white matter changes are within the left parietal lobe. These do not appear to be out of portion to the patient's age Ventricles and sulci are appropriate for the patient age. IMPRESSION: 1. 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 2. Subcortical chronic appearing white matter changes. 3. No suspicious changes to suggest metastatic disease [facility], Workstation: [facility], 06/02/2024 3:28 PM
== END | disposition home or self-care (01) ==
LOC: RADMRIMAIN 14:18
PROVIDERS: ATTEND Internal Medicine
DX: C34.80 Malignant neoplasm of overlapping sites of unspecified bronchus and lung
CPT/HCPCS: 70553

== ENCOUNTER → 2024-06-05 | Outpatient (CLI) | payer MEDICARE, OTHER ==
--- NOTE | 2024-06-06 18:44 | PE ---
EXAMINATION TYPE: PET CT fusion skull to thigh DATE OF EXAM: 06/05/2024 COMPARISON: 05/12/2024 CT chest Prior PET/CT: No prior PET/CT of dislocation. HISTORY: Lung cancer TECHNIQUE: Following the intravenous administration of 9.81 mCi of F-18 FDG, whole body images are p erformed from the skull base to the midthigh. Images are reviewed on the computer in the coronal, ax ial, and sagittal planes. Reconstructed rotating images are created on independent workstation and r eviewed on the computer. A localization and attenuation correction CT is performed in conjunction w ith the PET scan. DLP: 441.29 mGycm SCAN: Subsequently Blood glucose: 97 mg/dL Average Mediastinum SUV: 2.66 Average Liver SUV: 2.69 FINDINGS: NECK: No abnormal uptake THORAX: There is posterior left hilar uptake measuring 16.52, example image 89 and additional focus o f radiotracer accumulation with some central hypointensity is in the posterior left mid lung. Image 9 5, SUV 15.57. ABDOMEN: No abnormal uptake PELVIS: No abnormal uptake OSSEOUS STRUCTURES: No abnormal uptake LOCALIZATION CT: Heterogenous appearance to the liver. No abnormal hyperintensity to suggest metastat ic disease. Multiple small cysts are likely present. COMPARISON: Uptake within the posterior left hilar region appears to correlate with the endobronchial lesion. The abnormal uptake within the posterior left lung is not clearly identified within the area of atelectasis within the left lung. IMPRESSION: 1. Endobronchial lesion correlates with the uptake on the PET/CT. 2. Additional lesion in the posterior right lung with abnormal uptake compatible with neoplasm. 3. No suspicious hilar adenopathy identified. 4. No suspicious uptake identified within the liver [facility], Workstation: [facility], 06/06/2024 6:42 PM
== END | disposition home or self-care (01) ==
LOC: RADPETMAIN 07:08
PROVIDERS: ATTEND Internal Medicine Hematology & Oncology
DX: C34.81 Malignant neoplasm of overlapping sites of right bronchus and lung (principal)
CPT/HCPCS: 78815

== ENCOUNTER → 2024-09-02 | Outpatient (CLI) | payer MEDICARE, OTHER ==
[2024-09-02 10:20] LABS: African American GFR (CKD) >90 (>60 ml/min/1.73 sqM); Blood Urea Nitrogen 16 mg/dL (9-20); Non-African American GFR(CKD) >90 (>60 ml/min/1.73 sqM)
--- NOTE | 2024-09-03 23:27 | CT ---
EXAMINATION TYPE: CT chest abdomen w con DATE OF EXAM: 09/02/2024 COMPARISON: Prior PET/CT June 05, 2024 HISTORY: HX OF LUNG CA. IV CONTRAST ONLY CT DLP: 1185.10 mGycm. Automated Exposure Control for Dose Reduction was Utilized. CONTRAST: CT scan of the thorax and abdomen is performed with IV Contrast, patient injected with 100ml mL of Is ovue 300. FINDINGS: LUNGS: Mild to moderate underlying emphysematous changes redemonstrated. Complete resolution of left- sided pleural effusion. Marked improvement in the posterior superior left lower lobe neoplasm now levi suring 2.6 x 2.3 cm with medial layer axial image 24. Marked improvement in the posterior left hilar neoplasm now measuring approximate 1.7 x 1.3 cm axial image 29. Right lung remains clear. Improved me diastinal shift is noted. MEDIASTINUM: There are no new greater than 1 cm mediastinal lymph nodes. No cardiomegaly or pericar dial effusion is seen. LIVER/GB: Innumerable thin-walled cysts of varying size and shape are redemonstrated scattered throug hout the liver. PANCREAS: No significant abnormality is seen. SPLEEN: No significant abnormality is seen. ADRENALS: No new adrenal masses. KIDNEYS: Tiny nonobstructing bilateral renal calculi redemonstrated. BOWEL: No significant abnormality is seen. LYMPH NODES: No greater than 1cm abdominal lymph nodes are appreciated. OSSEOUS STRUCTURES: Spondylolisthesis with surgical change at the lumbosacral junction is redemonstra jose de jesus. OTHER: Mild calcified plaque in the ectatic abdominal aorta. IMPRESSION: Partial positive treatment response as detailed above. Significant improvement in the le ft lung neoplasm. [facility], , 09/03/2024 11:24 PM
== END | disposition home or self-care (01) ==
LOC: RADCTMAIN 09:43
PROVIDERS: ATTEND Internal Medicine
DX: C34.12 Malignant neoplasm of upper lobe, left bronchus or lung (principal); C61 Malignant neoplasm of prostate; R06.02 Shortness of breath; Z71.3 Dietary counseling and surveillance
CPT/HCPCS: 82565; 84520; 71260; 74160; 36415; Q9967

== ENCOUNTER → 2024-12-15 | Outpatient (CLI) | payer MEDICARE, OTHER ==
[2024-12-15 12:10] LABS: African American GFR (CKD) >90 (>60 ml/min/1.73 sqM); Blood Urea Nitrogen 18 mg/dL (9-20); Non-African American GFR(CKD) >90 (>60 ml/min/1.73 sqM)
--- NOTE | 2024-12-15 13:22 | CT ---
EXAMINATION TYPE: CT chest and abdomen with contrast. DATE OF EXAM: 12/15/2024 COMPARISON: CT chest and abdomen dated 09/02/2024 CLINICAL INDICATION: Male, 64 years old with history of C61 MALIGNANT NEOPLASM OF PROSTATE CT DLP: 1521 mGycm Automated exposure control for dose reduction was used. CONTRAST: CT scan of the chest, and abdomen is performed without Oral Contrast and with IV Contrast, patient in jected with 100 mL of Isovue 300. FINDINGS: CT chest: There are mild emphysematous changes. The left lower lobe mass 0.3 2.2 x 2.6. There is a new 12.8 mm subpleural parenchymal nodule in the l eft lower lobe posteriorly there are no masses or nodules in the right lung. No airspace consolidatio n There is no pleural effusion or pneumothorax.. There is decrease soft tissue density in the left. The re is no evidence of mediastinal, hilar or axillary adenopathy. Great vessels of the chest and heart are normal in size No focal osseous lesions are seen. CT abdomen and pelvis: Gallbladder is normal without distention, pericholecystic fluid, wall thickening or gallstone. There is no biliary ductal dilatation. There are multiple innumerable hypodensities within the liver the largest of which is in the left lob e of the liver and is stable in size. The majority are too small to characterize with certainty. The findings could represent innumerable hepatic cysts but metastatic disease cannot be excluded. There i s no focal mass or organomegaly involving the spleen, pancreas or adrenal glands. There is no solid renal mass or hydronephrosis. There is no retroperitoneal adenopathy or hemorrhage in the caliber of the abdominal aorta is normal. The bowel loops are normal in caliber and there is no dilatation or obstruction. No inflammatory bowen ges identified in the bowel wall and mesentery. There is no free intracranial air or fluid. There are no focal osseous lesions. There is postsurgical changes of fusion in the lumbar spine. . IMPRESSION: 1. Decrease in size in the primary left lower lobe as described above. 2. New possible satellite lesion in the left lower lobe as described above. 3. innumerable hypodensities within the liver most likely cysts but many too small to characterize an d metastatic disease cannot be excluded. [facility], , 12/15/2024 1:20 PM
== END | disposition home or self-care (01) ==
LOC: RADCTMAIN 11:17
PROVIDERS: ATTEND Internal Medicine
DX: C34.12 Malignant neoplasm of upper lobe, left bronchus or lung (principal); C61 Malignant neoplasm of prostate; R06.02 Shortness of breath; Z71.3 Dietary counseling and surveillance
CPT/HCPCS: 82565; 84520; 71260; 74177; 36415; Q9967

== ENCOUNTER → 2025-03-26 | Outpatient (CLI) | payer MEDICARE, OTHER ==
--- NOTE | 2025-03-26 16:41 | PE ---
EXAMINATION TYPE: PET CT fusion skull to thigh DATE OF EXAM: 03/26/2025 CLINICAL INDICATION:Male, 65 years old with history of C34.82 lung ca; TECHNIQUE: Following the intravenous administration of 10.06 mCi of F-18 FDG, whole body images are performed from the skull base to the midthigh. Images are reviewed on the computer in the coronal, axial, and sagittal planes. Reconstructed rotating images are created on independent workstation and reviewed on the computer. A non-contrast CT is performed in conjunction with the PET scan. Glucose level 98 mg/dL CT DLP: 441.29 mGycm, Automated exposure control for dose reduction was used. COMPARISON: CT 12/15/2024, 09/02/2024, 05/12/2024, PET/CT 06/05/2024, MRI: 06/02/2024 FINDINGS: Mediastinal SUV mean is 2.0. Hepatic parenchyma SUV mean is 1.9. SKULL BASE AND NECK: No suspicious radiotracer activity. CHEST, MEDIASTINUM, AND HILAR REGION: Decreased in size of superior segment left lower lobe 2.0 x 1.5 cm pulmonary nodule, previously 2.3 x 2.2 cm. On most recent CT Demonstrates a maximum SUV of 1.9, previously 23.4 on prior PET/CT. Decreased size of posterior left hilar 1 cm lymph node with FDG activity. Demonstrates a max SUV of 4 .4. Previously 20.6 on prior PET/CT. ABDOMEN AND PELVIS: No suspicious radiotracer activity. MUSCULOSKELETAL STRUCTURES: No suspicious radiotracer activity. OTHER CT: Large sandee cisterna magna. Bilateral aphakia. Moderate calcification of the bilateral carot id bifurcations. Mild atherosclerotic calcification of the aorta and its branches. Small aortic valvu lar calcifications. Trace pericardial effusion. Innumerable foci throughout the liver suggesting cyst s and/or biliary hamartomas. Shifting bilateral renal calculi with largest involving the right kidney measuring 4 mm. Largest involving the left kidney measures 3 mm. Subcentimeter left mid kidney cyst. Postsurgical changes from fusion involving L5-S1. Fixed grade 2 anterolisthesis of L5 on S1. Postsur gical changes from a penile prosthesis with reservoir within the anterior pelvis. Pelvic phleboliths. Prostate gland appears surgically absent. Mild emphysematous changes. Left basilar subsegmental atel ectasis. IMPRESSION: Positive response to therapy with decreasing size of posterior left hilar lymph node and superior seg ment left lower lobe pulmonary nodule. No significant FDG activity within the pulmonary nodule. There is mild FDG activity within the hilar lymph node. Residual disease is not excluded. No new suspiciou s FDG activity. Attention on follow-up PET/CT. [facility], , 03/26/2025 4:39 PM
== END | disposition home or self-care (01) ==
LOC: RADPETMAIN 06:41
PROVIDERS: ATTEND Radiology Radiation Oncology
DX: C34.32 Malignant neoplasm of lower lobe, left bronchus or lung (principal); C34.82 Malignant neoplasm of overlapping sites of left bronchus and lung; C77.1 Secondary and unspecified malignant neoplasm of intrathoracic lymph nodes; Z87.891 Personal history of nicotine dependence; R91.1 Solitary pulmonary nodule
CPT/HCPCS: 78815; A9552